=== PATIENT | male | born 1955 | race Two or more races ===

== ENCOUNTER 2018-01-13 15:27 | Emergency (ER) | payer BC ==
[~2018-01-13] VITALS: Ht 172.7 cm; Wt 74.8 kg
--- NOTE | 2018-01-13 15:48 | NUR ---
PT REC'D TO ER VIA EMS C/O SEIZURES FROM SNF HEAD INJURY LEFT HAND 18G IVP HEPLOCKED LABS DRAWN SENT TO LAB
[2018-01-13 15:58] LABS: CALCIUM, SERUM 8.6 mg/dL (8.5-10.1); POTASSIUM 4.4 mmol/L (3.5-5.1)
[2018-01-13] MEDS ORDERED: IV NS 0.9% 1,000 ML BAG IV ONE (16:30)
--- NOTE | 2018-01-13 16:55 | NUR ---
PT GIVEN IV NS BOLUS PER NO [id number] AT THIS TIME
--- NOTE | 2018-01-13 17:01 | NUR ---
CALLED RAHUL FOR TRANSPORT BACK TO [facility], [address], TRIP [phone]
--- NOTE | 2018-01-13 19:11 | NUR ---
REPORT RECEIVED FROM ORVILLE MARIE FOR ALANIS.
--- NOTE | 2018-01-13 19:49 | NUR ---
REPORT GIVEN TO RAHUL FOR ALANIS OF PT FOR TRANSPORT TO SNF.
--- NOTE | 2018-01-13 19:58 | NUR ---
IV removed. Catheter intact and site benign. Pressure and 4x4 applied to site. No bleeding noted. Patient discharged to home in stable condition. Written and verbal after care instructions given. Family verbalizes understanding of instruction.
[2018-01-13 19:59] VITALS: BP 140/93
== END 2018-01-13 20:00 | disposition home or self-care (01) ==
LOC: ER 15:33
DX: R56.9 Unspecified convulsions (principal)
CPT/HCPCS: 36415; 80048-TC; 80164-TC; A4606; J7030; Z7610

== ENCOUNTER 2022-07-08 15:20 | Inpatient (IN) | payer BC ==
[~2022-07-08] VITALS: Ht 170.2 cm; Wt 81.6 kg
--- NOTE | 2022-07-08 15:20 | NUR ---
RECIVED PT 66 YRS MALE TRANSFER FROM SNF BY ANGELA FOR ELEVTED TEMP TEMP CHECHED 102.6 RECTALE
[2022-07-08] MEDS ORDERED: VANCOMYCIN 1 GM in IV D5W 250 ML IV ONE (15:30)
[2022-07-08] MEDS ORDERED: ACETAMINOPHEN 650 MG/SUPP.RECT RC ONE ×2 (15:30→15:48)
[2022-07-08] MEDS ORDERED: PIPERACILLIN /TAZOBACTAM 3.375 G in IV D5W 50 ML IV ONE (15:30)
[2022-07-08] MEDS ORDERED: IV NS 0.9% 1,000 ML BAG IV ONE (15:30)
--- NOTE | 2022-07-08 15:45 | NUR ---
BLOOD AND BLOOD CULTURE BLOOD DROW BY LAB TACH AT bed side
--- NOTE | 2022-07-08 16:05 | NUR ---
MOVE SHEET SUBMITTED.
--- NOTE | 2022-07-08 16:20 | NUR ---
TIFFANY AND CHARI ALDRIDGE SENT TO LAB
[2022-07-08 16:26] LABS: BASOPHILS % (AUTO) 0.3 % (0.0-2.0); HEMATOCRIT 27 % (39-51); HEMOGLOBIN 8.5 g/dL (13.5-17.5); LYMPHOCYTES # (AUTO) 1.3 K/uL (0.8-4.8); MEAN CORPUSCULAR HGB CONC 31 g/dl (31.0-36.0); MEAN CORPUSCULAR VOLUME 98 fL (80-96); MONOCYTES # (AUTO) 1.1 K/uL (0.1-1.30); MONOCYTES % (AUTO) 8.8 % (2.0-12.0); NEUTROPHILS # (AUTO) 10.1 K/uL (1.8-8.9); NEUTROPHILS % (AUTO) 79.9 % (43.0-81.0); PLATELET COUNT (AUTO) 165 K/uL (150-450); RED BLOOD CELL COUNT(AUTO) 2.76 MIL/uL (4.5-6.0); WHITE BLOOD COUNT (AUTO) 12.6 K/uL (4.3-11.0)
[2022-07-08 16:38] LABS: CALCIUM, SERUM 7.9 mg/dL (8.5-10.1); CARBON DIOXIDE 27 mmol/L (21-32); CHLORIDE 111 mmol/L (98-107); CREATININE 1.9 mg/dL (0.6-1.3); GLUCOSE 100 mg/dL (74-106); POTASSIUM 3.6 mmol/L (3.5-5.1); SODIUM SERUM 147 mmol/L (136-145); UREA NITROGEN, BLOOD 41 mg/dL (7-18)
[2022-07-08 16:54] LABS: ALANINE AMINOTRANSFERASE 24 U/L (12-78); ALBUMIN 2.1 g/dL (3.4-5.0); ALKALINE PHOSPHATASE 108 U/L (46-116); ASPARTATE AMINOTRANSFERASE 22 U/L (15-37); BILIRUBIN,DIRECT 0.2 mg/dL (0.0-0.2); BILIRUBIN,TOTAL 0.4 mg/dL (0.2-1.0); TOTAL PROTEIN, SERUM 6.3 g/dL (6.4-8.2)
--- NOTE | 2022-07-08 17:00 | NUR ---
I&O CATHETER FR # 14 INSERTED 200 ML YELLOW CLEAR COLOR UA SENT TO LAB
--- NOTE | 2022-07-08 17:35 | NUR ---
IV OUT RENSERED ANGO CATHETER # 20 ON RT HAND PATATET
--- NOTE | 2022-07-08 17:53 | NUR ---
[facility] CALLED DANCE INSTRUCTOR PAGED.
[2022-07-08 18:27] LABS: BILIRUBIN,URINE NEGATIVE (NEGATIVE); COLOR,URINE YELLOW (YELLOW); LEUKOCYTE ESTERASE ,URINE NEGATIVE (NEGATIVE); NITRITE, URINE NEGATIVE (NEGATIVE); PH,URINE 5.5 (5.0-8.0); PROTEIN,URINE NEGATIVE (NEGATIVE); UGLUCOSE NEGATIVE (NEGATIVE); UROBILINOGEN,URINE 0.2 EU/dL (0.2)
[2022-07-08 18:28] LABS: ABG BASE EXCESS 0.6 mmol/L; ABG PH 7.365 (7.350-7.450); ABG PO2 179.9 mmHg (75.0-100.0); COHb 0.1 % (0.5-1.5); O2Hb 97.6 % (94.0-97.0); SITE, ABG Right Radial; VENT MODE, BG 15L NRB
--- NOTE | 2022-07-08 18:30 | NUR ---
SUCTION PT ORALY THICK YELLOW DELGADO COLOR DEJUANE RUDDYT
[2022-07-08 18:36] LABS: BACTERIA,URINE None seen /HPF (None Seen); RBC,URINE 0-2 /HPF (0-2); SQUAMOUS EPITHELIAL CELL,UR 0-2 /HPF (None Seen); WBC,URINE 0-2 /HPF (0-3)
[2022-07-08 18:49] LABS: BAND % (MANUAL) 16 % (0.0-5.0); EOSINOPHILS % (MANUAL) 1 % (0-4); LYMPHOCYTES % (MANUAL) 12 % (16-48); METAMYELOCYTES % 5 % (0-0); MONOCYTES % (MANUAL) 7 % (0-11.0); NEUTROPHILS % (MANUAL) 59 (42-76)
--- NOTE | 2022-07-08 19:40 | NUR ---
HAND OFF MALICK ZHAO
--- NOTE | 2022-07-08 19:54 | NUR ---
LACTIC ACID 2.5
[2022-07-08] MEDS ORDERED: LORAZEPAM INJ 2 MG/ML VIAL ONE (20:09)
--- NOTE | 2022-07-08 20:26 | NUR ---
room [id number]
[2022-07-08] MEDS ORDERED: LORAZEPAM INJ 2 MG/ML VIAL IV ONE (20:30)
--- NOTE | 2022-07-08 20:44 | NUR ---
covid pcr swab collected and sent to lab
[2022-07-09] VITALS (82 sets, daily range): BP systolic 44–181; BP diastolic 23–88
[2022-07-09] MEDS ORDERED: EPINEPHRINE (1:10,000) SYRINGE 1 MG/10 ML DISP.SYRIN ONE (00:15)
[2022-07-09 00:19] LABS: ABG BASE EXCESS -2.9 mmol/L; ABG PCO2 31.3 mmHg (35.0-45.0); ABG PH 7.436 (7.350-7.450); ABG PO2 52.7 mmHg (75.0-100.0); COHb 0.1 % (0.5-1.5); MetHb 1.4 % (0.0-1.5); O2Hb 86.1 % (94.0-97.0); SITE, ABG Right Radial; VENT MODE, BG 15L NRB
--- NOTE | 2022-07-09 00:43 | NUR ---
20MG ETOMIDATE AND 100MG SUCCICHOLINE GIVEN IVP FOR INTUBATION
--- NOTE | 2022-07-09 00:49 | NUR ---
PT INTUBATED WITH SIZE 7.5 ET TUBE 22 AT THE LIP
[2022-07-09] MEDS ORDERED: PROPOFOL 100 ML ONE (00:51)
--- NOTE | 2022-07-09 00:54 | NUR ---
PROPOFOL INITIATED 5MCG/KG/MIN FOR SEDATION S/P INTUBATION
--- NOTE | 2022-07-09 01:00 | NUR ---
16FR FC INSERTED AND 16FR NGT INSERTED AT R NARE AT 67.PLACEMENT CHECKED VIA ASPIRATION AND AUSCULTATION.
--- NOTE | 2022-07-09 01:07 | NUR ---
RT pt intubated for airway protection and change in ams. intubated with ETT size 7.5 at 22@ teeth. vent settings: AC 18 500 100% +5. vent plugged in to red outlet. alarms on and audible. tube confirmed with co2 capnography and bilateral chest rise plus lung sounds. alarms on and audible. large thick secretions suctioned via ett. ambu bag at bedside.
--- NOTE | 2022-07-09 01:14 | NUR ---
PROPOFOL INFUSION PAUSED DUE TO PT HYPOTENSION
[2022-07-09] MEDS ORDERED: PHENYLEPHRINE 10 MG/ML VIAL ONE ×2 (01:22→04:16)
[2022-07-09] MEDS: PHENYLEPHRINE 50 MG in IV NS 0.9% 245 ML IV PRN ×4 (01:39→12:42)
--- NOTE | 2022-07-09 01:39 | NUR ---
NEOSYNEPHRINE DRIP INITIATED AT 0.5MCG/KG/MIN PER DR LORA FOR SUSTAINED HYPOTENSION.
--- NOTE | 2022-07-09 01:55 | NUR ---
NEOSYNEPHRINE DRIP TITRATED TO 0.6MCG/KG/MIN FOR SUSTAINED HYPOTENSION.
--- NOTE | 2022-07-09 01:57 | NUR ---
XRAY AT BEDSIDE
--- NOTE | 2022-07-09 02:10 | NUR ---
NEOSYNEPHRINE DRIP TITRATED TO 0.7MCG/KG/MIN FOR SUSTAINED HYPOTENSION.
--- NOTE | 2022-07-09 02:25 | NUR ---
NEOSYNEPHRINE DRIP TITRATED TO 0.8MCG/KG/MIN FOR SUSTAINED HYPOTENSION.
--- NOTE | 2022-07-09 02:40 | NUR ---
NEOSYNEPHRINE DRIP TITRATED TO 0.9MCG/KG/MIN FOR SUSTAINED HYPOTENSION.
--- NOTE | 2022-07-09 02:55 | NUR ---
NEOSYNEPHRINE DRIP TITRATED TO 1MCG/KG/MIN FOR SUSTAINED HYPOTENSION.
--- NOTE | 2022-07-09 03:10 | NUR ---
NEOSYNEPHRINE DRIP TITRATED TO 1.5MCG/KG/MIN FOR SUSTAINED HYPOTENSION.
--- NOTE | 2022-07-09 03:25 | NUR ---
NEOSYNEPHRINE DRIP TITRATED TO 2MCG/KG/MIN FOR SUSTAINED HYPOTENSION.
--- NOTE | 2022-07-09 03:45 | NUR ---
NEOSYNEPHRINE DRIP TITRATED TO 2.5MCG/KG/MIN FOR SUSTAINED HYPOTENSION.
--- NOTE | 2022-07-09 03:55 | NUR ---
NEOSYNEPHRINE DRIP TITRATED TO 3MCG/KG/MIN FOR SUSTAINED HYPOTENSION.
[2022-07-09] MEDS ORDERED: AMAN100T GT (04:17)
[2022-07-09] MEDS ORDERED: ATOR10TA GT (04:18)
[2022-07-09] MEDS ORDERED: CLON0.1T GT (04:19)
[2022-07-09] MEDS ORDERED: FOLI0.8T2 GT (04:20)
--- NOTE | 2022-07-09 04:36 | NUR ---
REPORT GIVEN TO ED
--- NOTE | 2022-07-09 04:50 | NUR ---
PT TRANSPORTED TO ROOM 245 ON CARDIAC PER ACLS. RT AT BEDSIDE WITH VENT.
[2022-07-09] MEDS ORDERED: SINEMET GT (05:04)
[2022-07-09] MEDS ORDERED: OLOP5DRO22 EACHEYE (05:04)
[2022-07-09] MEDS ORDERED: METO25TA6 GT (05:04)
[2022-07-09] MEDS ORDERED: IPRA3AMP23 IH (05:04)
[2022-07-09] MEDS ORDERED: PRAM0.253 GT (05:04)
[2022-07-09] MEDS ORDERED: AMIN30LI27 GT (05:04)
[2022-07-09] MEDS ORDERED: CLON1TAB GT (05:04)
[2022-07-09] MEDS ORDERED: LEVE1000 GT (05:04)
[2022-07-09] MEDS ORDERED: GABA-532 GT (05:04)
[2022-07-09] MEDS ORDERED: OMEP20TA5 GT (05:04)
[2022-07-09] MEDS ORDERED: ASCO500P18 GT (05:04)
[2022-07-09] MEDS ORDERED: VALP250S3 GT (05:04)
[2022-07-09] MEDS ORDERED: MULT-213 GT (05:04)
[2022-07-09] MEDS ORDERED: NOREPINEPHRINE 8MG/250ML RTU 250 ML IV ONE (06:09)
[2022-07-09] MEDS: NOREPINEPHRINE 8 MG in IV NS 0.9% 242 ML IV PRN ×4 (06:23→15:45)
[2022-07-09] MEDS ORDERED: ACETAMINOPHEN 650 MG/SUPP.RECT RC PRN (07:00)
[2022-07-09] MEDS ORDERED: IV NS 0.9% 500 ML IV ONE (07:00)
--- NOTE | 2022-07-09 08:00 | NUR ---
RN NOTES RECEIVED PATIENT TRACHEA VENT, NO SEDATION AT THOIS TIME, PATIENT HR BEDSIDE MONITOR 131 ST, INFUSING NESYNEPHRINE 3 MCG.KG/MIN, VEOPHED 0.2 MCG/KG/MIN, LOZA INTACT, RECHECKED GT INTACT, DISTENDED ABDOMEN, PICTURE TAKEN ON RIGHT 2-NF
--- NOTE | 2022-07-09 08:00 | NUR ---
RN NOTES RECEIVED PATIENT TRACHEA /VENT , NO SEDATION AT THIS TIME, PATIENT HR BEDSIDE MONITOR [address] ST, INFUSING NORSYNEPHRINE 3 MCG/KG/MIN, LEVOPHED 0.2 MCG/KG/MIN ON RIGHT INTACT. PATIENT CONTRACTED, LOZA INTACT, RECHECKED GT INTACT. RT WITH THE PATIENT AT THIS TIME. PATIENT HAS DISTENDED ABDOMEN, PICTURE TAKEN ON RIGHT 2-ND FALANGE, AND RIGHT KNEE, KEEP HOB ELEVATED. WILL FOLLOW UP.
[2022-07-09] MEDS: CEFEPIME 2 GM in IV D5W 100 ML IV SCH ×2 (08:16→20:33)
[2022-07-09] MEDS ORDERED: NA P133E RC (08:23)
[2022-07-09] MEDS ORDERED: BISA10SU11 RC (08:23)
[2022-07-09] MEDS ORDERED: FOLI0.4T6 GT (08:23)
[2022-07-09] MEDS ORDERED: MAGN400O6 PO (08:23)
[2022-07-09] MEDS ORDERED: POLY15DR40 EACHEYE (08:23)
[2022-07-09] MEDS ORDERED: ACET-868 GT (08:23)
[2022-07-09] MEDS ORDERED: CARB1TAB21 GT (08:23)
[2022-07-09] MEDS ORDERED: LACT-96 GT (08:23)
[2022-07-09 10:10] LABS: CALCIUM, SERUM 7.8 mg/dL (8.5-10.1); CREATININE 3.3 mg/dL (0.6-1.3); POTASSIUM 3.5 mmol/L (3.5-5.1)
[2022-07-09 10:19] LABS: EOSINOPHILS % (AUTO) 3.3 % (0.0-6.0); HEMATOCRIT 26 % (39-51); HEMOGLOBIN 8.1 g/dL (13.5-17.5); LYMPHOCYTES # (AUTO) 0.9 K/uL (0.8-4.8); LYMPHOCYTES % (AUTO) 3.2 % (20.0-44.0); MEAN CORPUSCULAR HGB CONC 31 g/dl (31.0-36.0); MEAN CORPUSCULAR VOLUME 98 fL (80-96); MONOCYTES # (AUTO) 0.8 K/uL (0.1-1.30); MONOCYTES % (AUTO) 2.9 % (2.0-12.0); NEUTROPHILS # (AUTO) 25.3 K/uL (1.8-8.9); NEUTROPHILS % (AUTO) 90.6 % (43.0-81.0); PLATELET COUNT (AUTO) 161 K/uL (150-450); RED BLOOD CELL COUNT(AUTO) 2.63 MIL/uL (4.5-6.0)
--- NOTE | 2022-07-09 10:45 | NUR ---
RN NOTES PATIENT GET PILL LINE INSERTED ON PANCHO INTACT. NOTIFIED HOSPITALIST PATIENT SEIZING ON RIGHT UPPER ARM, AND SHOULDER FOR ORDERS.
[2022-07-09] MEDS ORDERED: DEXTROSE 50%-WATER 50 ML DISP.SYRIN ONE (10:46)
[2022-07-09] MEDS ORDERED: DEXTROSE 50%-WATER 50 ML DISP.SYRIN IVP ONE (11:00)
[2022-07-09] MEDS ORDERED: IV D5W 250 ML IV ONE (11:00)
[2022-07-09] MEDS ORDERED: LORAZEPAM INJ 2 MG/ML VIAL IV ONE ×2 (11:00→14:30)
--- NOTE | 2022-07-09 11:00 | NUR ---
rn notes notes patient patient seizing get order ativan 4mg/ml iv push per hospitalist, alsi bs-22 mg/dl administered dextrose 250ml blouse.
[2022-07-09] MEDS ORDERED: IV D5 LR 500 ML IV ONE (11:30)
[2022-07-09] MEDS ORDERED: FENTANYL CITRAT IV 2,500 MCG in IV NS 0.9% 200 ML IV PRN (11:30)
[2022-07-09] MEDS ORDERED: IV LR 500 ML IV ONE (11:30)
--- NOTE | 2022-07-09 11:30 | NUR ---
RT NOTE PATIENT DESATURATING. INCREASED FIO2 TO 100%. MONITORING THE PATIENT CLOSELY. RN NOTIFIED AND AWARE.
[2022-07-09] MEDS ORDERED: LEVETIRACETAM (500MG) 1,000 MG in IV NS 0.9% 100 ML IV ONE (12:00)
[2022-07-09] MEDS: PROPOFOL 100 ML IV PRN (12:28)
[2022-07-09] MEDS ORDERED: IV LR 1000 ML 1,000 ML IV ONE (12:30)
[2022-07-09] MEDS: HYDROCORTISONE SOD SUCCINATE 100 MG/2 ML VIAL IV SCH ×2 (12:38→21:30)
[2022-07-09] MEDS ORDERED: GLUCAGON,HUMAN RECOMBINANT 1 MG/VIAL VIAL IM STA (13:05)
[2022-07-09] MEDS: FENTANYL CITRAT IV 2,500 MCG in IV NS 0.9% 200 ML IV PRN (13:11)
[2022-07-09] MEDS: VASOPRESSIN INJ 40 UNIT in IV NS 0.9% 38 ML IV PRN ×2 (13:17→22:08)
[2022-07-09 14:24] LABS: ABG BASE EXCESS -3.1 mmol/L; ABG OXYGEN SATURATION 96.4 % (92.0-98.5); ABG PCO2 32.4 mmHg (35.0-45.0); ABG PH 7.427 (7.350-7.450); ABG PO2 86.7 mmHg (75.0-100.0); AaDO2 593.9 mmHg; COHb 0.3 % (0.5-1.5); MetHb 1.5 % (0.0-1.5); O2Hb 94.7 % (94.0-97.0); PEEP,BG 0 cm H2O; SITE, ABG A-Line; VT, ABG 500 mL
[2022-07-09] MEDS ORDERED: Sodium Bicarbonate 150 MEQ in IV D5/ 0.9% NACL 1,000 ML IV PRN (14:30)
--- NOTE | 2022-07-09 14:30 | NUR ---
rn notes patient sizing get order Dr Escamilla stat Ativan 4 mg/ml iv push, order taken and carried out.
--- NOTE | 2022-07-09 14:33 | NUR ---
rn notes administered Ativan 4 mg /ml iv push, increased fentanyl 50mcg/kg/hr, for stop seizing.
[2022-07-09] MEDS ORDERED: Sodium Bicarbonate 150 MEQ in IV D5W 1,000 ML IV PRN (15:00)
[2022-07-09] MEDS: NOREPINEPHRINE 32 MG in IV NS 0.9% 218 ML IV PRN ×2 (15:40→19:21)
[2022-07-09] MEDS ORDERED: SODIUM BICARBONATE SYR 50 MEQ/50 ML DISP.SYRIN IV ONE (16:34)
[2022-07-09] MEDS ORDERED: EPINEPHRINE (1:10,000) SYRINGE 1 MG/10 ML DISP.SYRIN IVP ONE (16:35)
[2022-07-09] MEDS: PHENYLEPHRINE 100 MG in IV NS 0.9% 240 ML IV PRN ×2 (16:35→22:07)
[2022-07-09] MEDS ORDERED: SUCCINYLCHOLINE CHLORIDE 20 MG/ML VIAL IV ONE (16:36)
[2022-07-09] MEDS ORDERED: ETOMIDATE 2 MG/ML VIAL IV ONE (16:36)
[2022-07-09] MEDS ORDERED: GLUCAGON,HUMAN RECOMBINANT 1 MG/VIAL VIAL IV ONE (17:00)
--- NOTE | 2022-07-09 18:30 | NUR ---
RN NOTES PM CARE DONE, SUCTION, INFUSING NORSYNEPHRINE 3MCG/KG/MIN, LEVOPHED 0.3 MCG/KG/MIN, FENTANYL 50MCG/KG/MIN, VASOPRESSIN 0.03 MCG/KG/MIN, DIPRIVAN 10MCG/KG/MIN, AND [id number] NABACARB @60ML/HR ON RIGHT PICC LINE, A LINE INTACT. ASSIST TURN AND REPOSTION, PATIENT UNSTABLE , FULL CODE. URINE OUTPUT WAS 500ML. ENDORSED ONCOMING NURSE ALANIS.
[2022-07-09] MEDS: LORAZEPAM INJ 2 MG/ML VIAL IV PRN (21:02)
--- NOTE | 2022-07-09 21:23 | NUR ---
RN NOTE PT O2 SAT AT77%-80% WITH FIO2 OF 100%. RT WAS AT BEDSIDE. TACHYPNEIC, SINUS TACH WITH HR IN 130S. ATIVAN GIVEN. NOTIFIED MANAGER COLLEGE DR LORA. NO NEW ORDER MADE. WILL CONTINUE TO MONITOR.
[2022-07-09 22:36] LABS: ABG OXYGEN SATURATION 85.1 % (92.0-98.5); ABG PCO2 40.2 mmHg (35.0-45.0); ABG PH 7.375 (7.350-7.450); ABG PO2 50.2 mmHg (75.0-100.0); AaDO2 622.6 mmHg; COHb 0.3 % (0.5-1.5); MetHb 1.3 % (0.0-1.5); O2Hb 83.7 % (94.0-97.0); PEEP,BG 0 cm H2O; SITE, ABG A-Line; VENT MODE, BG AC 18 500 100% +0
--- NOTE | 2022-07-09 23:00 | NUR ---
RN NOTE PT STILL WITH LOW O2 SAT LOW 80S. RESPIRATIONS IN 30S. ABG DONE BY RT. RESULTS RELAYED TO DR LORA. RT RECOMMENDING FOR PEEP. MD AGREED. PEEP 5 FIO2 100%. O2 SAT NOW AT 94% WILL CONTINUE TO MONITOR.
[2022-07-10] VITALS (67 sets, daily range): BP systolic 65–144; BP diastolic 36–88
[2022-07-10] MEDS ORDERED: LEVETIRACETAM (500MG) 500 MG in IV NS 0.9% 100 ML IV SCH ×2
[2022-07-10] MEDS: ACETAMINOPHEN 650 MG/20.3 ML UDC PEG PRN (00:30)
[2022-07-10] MEDS: PROPOFOL 100 ML IV PRN ×6 (00:52→23:32)
[2022-07-10 04:08] LABS: EOSINOPHILS % (AUTO) 0.1 % (0.0-6.0); HEMATOCRIT 25 % (39-51); HEMOGLOBIN 7.9 g/dL (13.5-17.5); LYMPHOCYTES # (AUTO) 0.9 K/uL (0.8-4.8); LYMPHOCYTES % (AUTO) 2.7 % (20.0-44.0); MEAN CORPUSCULAR HGB CONC 32 g/dl (31.0-36.0); MEAN CORPUSCULAR VOLUME 97 fL (80-96); MONOCYTES % (AUTO) 2.9 % (2.0-12.0); NEUTROPHILS # (AUTO) 33.7 K/uL (1.8-8.9); NEUTROPHILS % (AUTO) 94.3 % (43.0-81.0); PLATELET COUNT (AUTO) 146 K/uL (150-450); RED BLOOD CELL COUNT(AUTO) 2.55 MIL/uL (4.5-6.0)
[2022-07-10 04:15] LABS: WHITE BLOOD COUNT (AUTO) 35.7 K/uL (4.3-11.0)
[2022-07-10 04:24] LABS: CALCIUM, SERUM 7.3 mg/dL (8.5-10.1); CARBON DIOXIDE 27 mmol/L (21-32); CHLORIDE 111 mmol/L (98-107); GLUCOSE 138 mg/dL (74-106); POTASSIUM 4.5 mmol/L (3.5-5.1); SODIUM SERUM 149 mmol/L (136-145); UREA NITROGEN, BLOOD 47 mg/dL (7-18)
[2022-07-10 04:27] LABS: MAGNESIUM 2.2 mg/dL (1.8-2.4); PHOSPHORUS 4.7 mg/dL (2.5-4.9)
[2022-07-10 05:01] LABS: BAND % (MANUAL) 19 % (0.0-5.0); BASOPHILS % (MANUAL) 0 % (0.0-2.0); EOSINOPHILS % (MANUAL) 0 % (0-4); LYMPHOCYTES % (MANUAL) 5 % (16-48); MONOCYTES % (MANUAL) 2 % (0-11.0); NEUTROPHILS % (MANUAL) 74 (42-76)
[2022-07-10] MEDS: PHENYLEPHRINE 100 MG in IV NS 0.9% 240 ML IV PRN ×3 (05:08→20:32)
[2022-07-10] MEDS: HYDROCORTISONE SOD SUCCINATE 100 MG/2 ML VIAL IV SCH ×3 (05:20→21:07)
[2022-07-10 07:02] LABS: BILIRUBIN,DIRECT 0.2 mg/dL (0.0-0.2); BILIRUBIN,TOTAL 0.4 mg/dL (0.2-1.0)
--- NOTE | 2022-07-10 07:07 | NUR ---
RN NOTE PT REMAIN INTUBATED, CONTINUE WITH VENT SETTINGS. O2 SAT AT 90% RT AWARE. NOT IN ANY DISTRESS. REMAIN SEDATED WITH FENTANYL AND PROPOFOL. CONTINUE WITH PRESSORS AND NA BICARB AT 60ML.HR. PICC LINE AND BRIAN PATENT AND INTACT. TMAX AT 100.9, TYLENOL WAS GIVEN. LATEST TEMP 99.4. SINUS TACH ON TELE MONITOR WITH HR 120. LOZA CATH IN PLACE, ADEQUATE AMOUNT OF URINE OUTPUT. ENDORSED TO RINA FOR ALANIS
[2022-07-10] MEDS: CEFEPIME 2 GM in IV D5W 100 ML IV SCH ×2 (07:38→20:35)
[2022-07-10] MEDS ORDERED: Sodium Bicarbonate 150 MEQ in IV D5W 1,000 ML IV SCH (08:00)
--- NOTE | 2022-07-10 08:00 | NUR ---
rn notes PATIENT INTUBATED, TOLERATING SETTING WELL TV-500, FIO2- 100, PEEP-5, HR-121 SINUS TACHY, NO SEIZURE NOTED AT THIS TIME, T- 98.3F, NOT IN ANY DISTRESS. REMAIN SEDATED WITH FENTANYL 75 MCG/KG/MIN AND PROPOFOL 45MCG/KG/MIN. CONTINUE WITH PRESSORS AND NA BICARB AT 60ML/HR. PICC LINE AND BRIAN PATENT AND INTACT. LOZA CATH IN PLACE, ADEQUATE AMOUNT OF URINE OUTPUT. NO SEDATION VACATION TODAY PER DR GRANT ORDER, ASSIST TURN AND REPOSTION Q 2 HR, GT INTACT, RT WITH THE PATIENT FOR BREATHING TREATMENT WAITING PCR RESULT. WILL FOLLOW UP.
--- NOTE | 2022-07-10 09:16 | NUR ---
RN NOTES GET NEW ORDER STAT ABG, VIA DR GALVAN , RT NOTIFIED,.
[2022-07-10 09:34] LABS: ABG BASE EXCESS -1.1 mmol/L; ABG OXYGEN SATURATION 71.5 % (92.0-98.5); ABG PCO2 40.8 mmHg (35.0-45.0); ABG PH 7.385 (7.350-7.450); ABG PO2 38.4 mmHg (75.0-100.0); AaDO2 633.8 mmHg; COHb 0.3 % (0.5-1.5); MetHb 0.4 % (0.0-1.5); PEEP,BG 0 cm H2O; SITE, ABG Right Radial; VENT MODE, BG AC 100%; VT, ABG 500 mL
--- NOTE | 2022-07-10 09:45 | NUR ---
RN NOTES PATIENT FIO2-85% AT THIS TIME, ADDED PEEP 4 VIA RT, ABG RESULT NOTIFIED Dr GALVAN WAITING FOR RESPOND.
--- NOTE | 2022-07-10 09:56 | NUR ---
vent changes below per dr. desir: peep +[address] desir Addendum: 07/10/22 at 0956 by LONA GHOSH RT Amended: Links added.
[2022-07-10] MEDS ORDERED: PRAMIPEXOLE DI-HCL 0.25 MG TABLET GT SCH (10:00)
[2022-07-10] MEDS: AMANTADINE HCL 100 MG CAPSULE GT SCH ×3 (10:10→16:44)
[2022-07-10] MEDS: CARBIDOPA/LEVODOPA 25/100 MG 1 UDTAB GT SCH ×3 (10:10→16:44)
[2022-07-10] MEDS: LEVETIRACETAM SOL (5 ML) 100 MG/ML UDC GT SCH ×2 (10:10→21:07)
--- NOTE | 2022-07-10 10:22 | NUR ---
RN NOTES ADMINISTERED ORAL MEDICATION IA GT, INTACT, NO RESIDUAL.
[2022-07-10] MEDS: VALPROIC ACID 250 MG/5 ML UDC GT SCH ×2 (10:26→21:07)
[2022-07-10] MEDS ORDERED: VALPROATE 1,000 MG in IV D5W 100 ML IV ONE (11:00)
[2022-07-10] MEDS: GABAPENTIN 300 MG CAPSULE GT SCH ×3 (12:14→21:07)
[2022-07-10 13:00] LABS: ABG BASE EXCESS -4.2 mmol/L; ABG OXYGEN SATURATION 61.3 % (92.0-98.5); ABG PCO2 52.5 mmHg (35.0-45.0); ABG PO2 37.7 mmHg (75.0-100.0); AaDO2 622.8 mmHg; COHb 0.3 % (0.5-1.5); MetHb 0.1 % (0.0-1.5); O2Hb 61.1 % (94.0-97.0); PEEP,BG 5 cm H2O; SITE, ABG A-Line; VT, ABG 500 mL
--- NOTE | 2022-07-10 13:00 | NUR ---
rn notes patient rr-39, abg done via RT. PCO 2-52.5, PH-7.260, PO2-37.7,HCO 3-23, result notified Dr Aguiar, and get new order increase tv-550, peep-8, and repeat abg within two hr, order taken and carried out, rt next to the bed. will follow up.
[2022-07-10] MEDS: FENTANYL CITRAT IV 2,500 MCG in IV NS 0.9% 200 ML IV PRN (14:43)
[2022-07-10] MEDS ORDERED: VANCOMYCIN 1 GM in IV D5W 250 ML IV SCH (16:00)
[2022-07-10 16:01] LABS: ABG BASE EXCESS 0.4 mmol/L; ABG OXYGEN SATURATION 90.4 % (92.0-98.5); ABG PCO2 42.7 mmHg (35.0-45.0); ABG PH 7.392 (7.350-7.450); ABG PO2 62.3 mmHg (75.0-100.0); COHb 0.3 % (0.5-1.5); MetHb 0.6 % (0.0-1.5); O2Hb 89.6 % (94.0-97.0); PEEP,BG 8 cm H2O; SITE, ABG A-Line; VT, ABG 550 mL
--- NOTE | 2022-07-10 17:01 | NUR ---
RN NOTES COLLECTED UA SPECIMEN FROM LOZA CATHETER PORT.
[2022-07-10 17:30] LABS: BILIRUBIN,URINE NEGATIVE (NEGATIVE); COLOR,URINE YELLOW (YELLOW); LEUKOCYTE ESTERASE ,URINE TRACE (NEGATIVE); NITRITE, URINE POSITIVE (NEGATIVE); PROTEIN,URINE TRACE mg/dl (NEGATIVE); UGLUCOSE TRACE mg/dL (NEGATIVE); UROBILINOGEN,URINE 0.2 EU/dL (0.2)
[2022-07-10] MEDS: VANCOMYCIN 1 GM in IV D5W 250 ML IV SCH (18:05)
[2022-07-10 18:20] LABS: CREATININE, URINE 35.2 MG/DL (30.0-125.0)
[2022-07-10 18:29] LABS: RBC,URINE 21-50 /HPF (0-2)
[2022-07-10 18:30] LABS: BACTERIA,URINE 1+ /HPF (None Seen); SQUAMOUS EPITHELIAL CELL,UR 0-2 /HPF (None Seen)
--- NOTE | 2022-07-10 18:35 | NUR ---
RN NOTES SUCTION, MOUTH CARE DONE, PATIENT REMAIN INTUBATED, AND CRITICAL, NO TURNING BECAUSE OF PATIENT CONDITION. PATIENT FULL CODE, PATIENT REMAIN SEDATED FENTANYL 75 MCG/KG/MIN, AND DIPRIVAN 45 MCG/KG/MIN. INFUSING NORSYNEPHRINE 3 MCG/KG/MIN, AND VASOPRESSIN 0.03 MCG/KG/MIN ON PANCHO PICC LINE. A LINE INTACT ON RIGHT FEMORAL AREA. LOZA OUTPUT WAS 1050ML. ENDORSED ONCOMING NURSE ALANIS.
[2022-07-10] MEDS: VASOPRESSIN INJ 40 UNIT in IV NS 0.9% 38 ML IV PRN (18:52)
--- NOTE | 2022-07-10 19:05 | NUR ---
RN NOTES PATIENT RECEIVED ON BED SEDATED, ORALLY INTUBATED SIZE 7.5 AND 22 CM BY THE LIPS, ON MECHANICAL VENTILATOR, WITH SETTINGS TIDAL VOLUME- 550, AC- 18, FIO2- 100%, PEEP- 8, RESPIRATORY EVEN AND UNLABORED NO SOB NOTED, AFEBRILE, NO S/S OF DISTRESS NOTED. NOTED WITH PANCHO ML, FLUSHED WITH NS, RUNNING WITH FENRANYL @ 75 MCG/HR, PROPOFOL @ 45 MCG/KG/MIN, VASOPRESSIN @ 0.03 MCG/KG/MIN, NEOSYNEPHRINE @ 3 MCG/KG/MIN. A-LINE INTACT ON RIGHT FEMORAL. ON LOZA CATHETER DRAINING WITH CLEAR YELLOW URINE VIA GRAVITY, ALL SAFETY MEASURE PROVIDED. BED IN LOWEST POSITION, LOCKED. CONTINUE TO MONITOR.
[2022-07-10] MEDS: PRAMIPEXOLE DI-HCL 0.25 MG TABLET GT SCH (21:07)
[2022-07-11] VITALS (96 sets, daily range): BP systolic 86–136; BP diastolic 45–87
[2022-07-11] MEDS: PROPOFOL 100 ML IV PRN ×5 (03:22→21:32)
[2022-07-11] MEDS: PHENYLEPHRINE 100 MG in IV NS 0.9% 240 ML IV PRN ×2 (03:45→12:38)
[2022-07-11 03:58] LABS: BASOPHILS % (AUTO) 0.1 % (0.0-2.0); EOSINOPHILS % (AUTO) 0.1 % (0.0-6.0); HEMATOCRIT 26 % (39-51); HEMOGLOBIN 8.4 g/dL (13.5-17.5); LYMPHOCYTES # (AUTO) 0.9 K/uL (0.8-4.8); LYMPHOCYTES % (AUTO) 3.9 % (20.0-44.0); MEAN CORPUSCULAR HGB CONC 33 g/dl (31.0-36.0); MEAN CORPUSCULAR VOLUME 97 fL (80-96); MONOCYTES # (AUTO) 0.3 K/uL (0.1-1.30); MONOCYTES % (AUTO) 1.2 % (2.0-12.0); NEUTROPHILS # (AUTO) 21.5 K/uL (1.8-8.9); NEUTROPHILS % (AUTO) 94.7 % (43.0-81.0); PLATELET COUNT (AUTO) 124 K/uL (150-450); RED BLOOD CELL COUNT(AUTO) 2.65 MIL/uL (4.5-6.0); WHITE BLOOD COUNT (AUTO) 22.7 K/uL (4.3-11.0)
[2022-07-11 04:09] LABS: CALCIUM, SERUM 7.8 mg/dL (8.5-10.1); CREATININE 1.4 mg/dL (0.6-1.3); MAGNESIUM 2.4 mg/dL (1.8-2.4); PHOSPHORUS 3.2 mg/dL (2.5-4.9); POTASSIUM 3.5 mmol/L (3.5-5.1)
[2022-07-11] MEDS: HYDROCORTISONE SOD SUCCINATE 100 MG/2 ML VIAL IV SCH ×3 (04:42→20:20)
--- NOTE | 2022-07-11 07:13 | NUR ---
RN NOTES NO SIGNIFICANT CHANGES THROUGH OUT THE SHIFT, REMAIN ORALLY INTUBATED, RESPIRATORY EVEN AND UNLABORED NO SOB NOTED, AFEBRILE, NO S/S OF DISTRESS NOTED. NOTED WITH PANCHO ML, FLUSHED WITH NS, RUNNING WITH FENRANYL @ 75 MCG/HR, PROPOFOL @ 45 MCG/KG/MIN, VASOPRESSIN @ 0.03 MCG/KG/MIN, NEOSYNEPHRINE @ 2.5 MCG/KG/MIN. A-LINE INTACT ON RIGHT FEMORAL. ON LOZA CATHETER DRAINING WITH CLEAR YELLOW URINE VIA GRAVITY. ALL DUE MEDS GIVEN. ALL SAFETY MEASURE PROVIDED. BED IN LOWEST POSITION, LOCKED. REPORT GIVEN TO MORNING SHIFT NURSE FOR CONTINUITY OF CARE.
--- NOTE | 2022-07-11 07:30 | NUR ---
OPENING NOTE: REPORT RECEIVED FROM LUDIN JACINTO. LABS AND ORDERS REVIEWED DURING REPORT. PER REPORT NO SIGNIFICANT CHANGES OVERNIGHT. CURRENT GTTS INFUSING, FENTANYL, VASOPRESSIN, ELIZA-SYNEPHRINE AND PROPOFOL, SEE IV SPREADSHEET FOR DOSES INFUSING. PT DOES NOT APPEAR TO BE IN ANY DISTRESS. PT CHECKED ON HOURLY AND PRN BY NURSING STAFF.
[2022-07-11] MEDS: CEFEPIME 2 GM in IV D5W 100 ML IV SCH ×2 (08:14→19:43)
[2022-07-11] MEDS: CARBIDOPA/LEVODOPA 25/100 MG 1 UDTAB GT SCH ×3 (08:31→17:01)
[2022-07-11] MEDS: LEVETIRACETAM SOL (5 ML) 100 MG/ML UDC GT SCH ×2 (08:31→20:20)
[2022-07-11] MEDS: AMANTADINE HCL 100 MG CAPSULE GT SCH ×3 (08:31→17:00)
[2022-07-11] MEDS: VALPROIC ACID 250 MG/5 ML UDC GT SCH ×2 (08:31→20:19)
[2022-07-11] MEDS: GABAPENTIN 300 MG CAPSULE GT SCH ×4 (08:31→20:20)
[2022-07-11 08:35] LABS: ABG BASE EXCESS 1.4 mmol/L; ABG OXYGEN SATURATION 91.8 % (92.0-98.5); ABG PCO2 45.6 mmHg (35.0-45.0); ABG PH 7.386 (7.350-7.450); ABG PO2 70.5 mmHg (75.0-100.0); AaDO2 596.9 mmHg; COHb 0.3 % (0.5-1.5); MetHb 0.3 % (0.0-1.5); O2Hb 91.2 % (94.0-97.0); PEEP,BG 8 cm H2O; SITE, ABG A-Line; VT, ABG 550 mL
--- NOTE | 2022-07-11 09:00 | NUR ---
NO SEDATION VACATION PER DR GALVAN D/T SEIZURES, PEEP 8 AND 100% FIO2
[2022-07-11] MEDS: JEVITY 1.2 CAL 1,000 ML BOTTLE GT PRN (13:07)
[2022-07-11] MEDS: FENTANYL CITRAT IV 2,500 MCG in IV NS 0.9% 200 ML IV PRN (14:33)
[2022-07-11] MEDS: VANCOMYCIN 1 GM in IV D5W 250 ML IV SCH (17:21)
--- NOTE | 2022-07-11 18:08 | NUR ---
END OF SHIFT NOTE: PT HAD AN UNEVENTUL DAY. VASOPRESSIN WEANED OFF. ELIZA-SYNEPHRINE WEANED DOWN TO 1.7 MCG/KG/MIN PER MD ORDERS. PREVIOUSLY NOTED NO SEDATION VACATION PER MD ORDERS. PT REPOSITIONED Q2H PER PROTOCOL. PT CHECKED ON HOURLY AND PRN BY NURSING STAFF.
--- NOTE | 2022-07-11 19:54 | NUR ---
RN NOTE RECEIVED PT ETT SECURED CONNECTED TO VENT WITH SETTING AC18 TV 550 FIO2 100% P8. NOT IN ANY DISTRESS. SEDATED WITH PROPOFOL AT 45MCK/KG/MIN AND FENTANYL AT 76 MCG/HR. SR ON TELE MONITOR WITH HR 86%. GT PATENT AND INPLACE, ON JEVITY RUNNING AT 10ML/HR. NO RESIDUALS NOTED. KEPT HOB ELEVATED. PICC LINE PATENT AND INTACT, ON NEOSYNEPHRINE DRIP. LOZA DRAINING CLEAR YELLOW URINE OUTPUT. WILL CONTINUE TO MONITOR PT.
[2022-07-11] MEDS: MUPIROCIN OINT 2% 22 GM TUBE NS SCH (20:20)
[2022-07-11] MEDS: PRAMIPEXOLE DI-HCL 0.25 MG TABLET GT SCH (21:05)
[2022-07-12] VITALS (89 sets, daily range): BP systolic 71–121; BP diastolic 44–72
[2022-07-12] MEDS: PHENYLEPHRINE 100 MG in IV NS 0.9% 240 ML IV PRN ×2 (00:33→11:39)
[2022-07-12] MEDS: PROPOFOL 100 ML IV PRN ×2 (02:34→06:09)
[2022-07-12 04:28] LABS: BASOPHILS % (AUTO) 0.1 % (0.0-2.0); EOSINOPHILS % (AUTO) 1.3 % (0.0-6.0); HEMATOCRIT 26 % (39-51); HEMOGLOBIN 8.8 g/dL (13.5-17.5); LYMPHOCYTES # (AUTO) 0.7 K/uL (0.8-4.8); LYMPHOCYTES % (AUTO) 5.5 % (20.0-44.0); MEAN CORPUSCULAR HGB CONC 34 g/dl (31.0-36.0); MEAN CORPUSCULAR VOLUME 96 fL (80-96); MONOCYTES # (AUTO) 0.1 K/uL (0.1-1.30); MONOCYTES % (AUTO) 0.5 % (2.0-12.0); NEUTROPHILS # (AUTO) 11.9 K/uL (1.8-8.9); NEUTROPHILS % (AUTO) 92.6 % (43.0-81.0); PLATELET COUNT (AUTO) 88 K/uL (150-450); RED BLOOD CELL COUNT(AUTO) 2.71 MIL/uL (4.5-6.0); WHITE BLOOD COUNT (AUTO) 12.8 K/uL (4.3-11.0)
[2022-07-12 04:37] LABS: CALCIUM, SERUM 7.3 mg/dL (8.5-10.1); CREATININE 1.3 mg/dL (0.6-1.3); MAGNESIUM 2.6 mg/dL (1.8-2.4); PHOSPHORUS 3.2 mg/dL (2.5-4.9); POTASSIUM 3.4 mmol/L (3.5-5.1)
[2022-07-12 05:12] LABS: BAND % (MANUAL) 15 % (0.0-5.0); BASOPHILS % (MANUAL) 0 % (0.0-2.0); EOSINOPHILS % (MANUAL) 0 % (0-4); LYMPHOCYTES % (MANUAL) 7 % (16-48); MONOCYTES % (MANUAL) 4 % (0-11.0); NEUTROPHILS % (MANUAL) 74 (42-76)
[2022-07-12] MEDS: HYDROCORTISONE SOD SUCCINATE 100 MG/2 ML VIAL IV SCH ×3 (05:30→21:21)
--- NOTE | 2022-07-12 07:10 | NUR ---
AUSTR[employer]IAN RULES FOOTBALLER OPENING NOTE: RECEIVED PT. IN BED, SEDATED. RESPONDS ETT - 7.5/; AC - 18; VT - 550; FIO2 - 100%; PEEP - 8. SATURATING AT 92% AT THIS TIME. NO S/S OF RESPIRATORY DISTRESS. CORRESPONDENCE SCHOOL INSTRUCTOR READS NSR AT 64 BPM. PT. ON F/C WITH YELLOW CLEAR URINE DRAINING VIA GRAVITY. PT. HAS SCABS ON R KNEE AND R 2ND TOE, WILL CONTINUE TO MONITOR AND DO SKIN PRECAUTIONS. EDEMA NOTED ON HANDS AND LOWER EXTREMITIES. PT. HAS G-TUBE, SITE C/D/I WITH JEVITY 1.2 RUNNING AT 10 ML/HR. 120 ML GASTRIC RESIDUAL NOTED. IV ACCESS ON PANCHO PICC WITH FENTANYL RUNNING AT 75 MCG/HR, PROPOFOL AT 45 MCG/KG/MIN, AND NEOSYNEPHRINE AT 1.8 MCG/KG/MIN; ALSO HAS R FEMORAL ARTERIAL LINE, ZEROED, CALIBRATED AND PLACED AT THE PHLEBOSTATIC AXIS; BOTH IV SITE DRESSINGS C/D/I WITH NO S/S OF INFILTRATION. SAFETY MEASURES IN PLACE: BED IN LOWEST AND LOCKED POSITION, HOB ELEVATED AT 30 DEGREES, BED ALARM ON, SIDE RAILS UP X2, CALL LIGHT WITHIN EASY REACH. WILL TURN AND REPOSITION IN BED AT LEAST Q2H. WILL CONTINUE TO MONITOR PT. FOR ANY CHANGES.
--- NOTE | 2022-07-12 07:28 | NUR ---
RN NOTE PT REMAIN INTUBATED, CONTINUE WITH VENT SETTINGS. NOT IN ANY DISTRESS. TOLERATES TUBE FEEDING. ADEQUATE MOUNT OF URINE. CONTINUE WITH NEOSYNEPHRINE PROPOFOL AND FENTANYL. ENDORSED TO AM SHIFT NURSE FOR ALANIS.
[2022-07-12] MEDS: CEFEPIME 2 GM in IV D5W 100 ML IV SCH ×2 (08:54→21:24)
[2022-07-12] MEDS: GABAPENTIN 300 MG CAPSULE GT SCH ×4 (08:55→21:21)
[2022-07-12] MEDS: CARBIDOPA/LEVODOPA 25/100 MG 1 UDTAB GT SCH ×3 (08:55→17:16)
[2022-07-12] MEDS: LEVETIRACETAM SOL (5 ML) 100 MG/ML UDC GT SCH ×2 (08:56→21:21)
[2022-07-12] MEDS: AMANTADINE HCL 100 MG CAPSULE GT SCH ×3 (08:56→17:15)
[2022-07-12] MEDS: VALPROIC ACID 250 MG/5 ML UDC GT SCH ×2 (08:57→21:21)
[2022-07-12] MEDS: MUPIROCIN OINT 2% 22 GM TUBE NS SCH ×2 (08:57→21:30)
[2022-07-12] MEDS ORDERED: POTASSIUM CHLORIDE 20 MEQ POWDER PACKET GT SCH (09:00)
--- NOTE | 2022-07-12 10:10 | NUR ---
LASER PRINT OPERATOR NOTE: DIPRIVAN DRIP STOPPED AT 1000 DUE TO TRIGLYCERIDES OF [address] GALVAN'S ORDER. WILL CONTINUE TO MONITOR IF PT.'S RESPIRATORY RATE WILL REMAIN STABLE ON ONLY FENTANYL DRIP. VERSED DRIP ON STANDBY PER DR. GALVAN'S ORDER.
[2022-07-12] MEDS ORDERED: MIDAZOLAM HCL 100 MG in IV NS 0.9% 80 ML IV PRN (10:30)
--- NOTE | 2022-07-12 13:00 | NUR ---
TORPEDO WORKER NOTE: PT. NOTED TO HAVE A GASTRIC RESIDUAL OF 575 ML THAT RESEMBLES WATER AND TUBE FEEDING, NO S/S OF BLEEDING NOTED. RESIDUAL INJECTED BACK VIA G-TUBE. TUBE FEEDING STOPPED AND FREE WATER FLUSHES HELD. DR. QUINTEROS NOTIFIED. HOB ELEVATED AT 45 DEGREES. WILL CONTINUE TO MONITOR PT.'S GASTRIC RESIDUAL AND S/S OF ASPIRATION.
--- NOTE | 2022-07-12 16:00 | NUR ---
BLOOD BANK MANAGER NOTE: GASTRIC RESIDUAL RE-CHECKED AND STILL GOT [address] QUINTEROS NOTIFIED AND ORDERED FOR TUBE FEEDING AND FREE WATER FLUSHES TO BE HELD UNTIL GASTRIC RESIDUAL IS < 100 ML. ONCE GASTRIC RESIDUAL IS < 100 ML, MD ORDERED TO RESTART TUBE FEEDING AT HALF OF THE ORIGINAL RATE AND ADVANCE TO ORIGINAL RATE IF PT. IS TOLERATING TUBE FEEDING WELL. WILL FOLLOW ORDERS AND CONTINUE TO RE-ASSESS PT.'S GASTRIC RESIDUAL.
[2022-07-12] MEDS: VANCOMYCIN 1 GM in IV D5W 250 ML IV SCH (18:33)
--- NOTE | 2022-07-12 19:10 | NUR ---
DISK SANDER CLOSING NOTE: PT. REMAINS IN BED, SEDATED. RESPONDS TO DEEP PAIN STIMULI WITH EYELID AND LIP MOVEMENT. LEFT PUPIL DILATED AND RIGHT PUPIL HAS SLUGGISH REACTION. ETT - 7.5/22; AC - 18; VT - 550; FIO2 - 100%; PEEP - 10. SATURATING AT 96% AT THIS TIME. NO S/S OF RESPIRATORY DISTRESS. CHANNELING MACHINE OPERATOR READS NSR AT 74 BPM. PT. ON F/C WITH TOTAL OUTPUT OF 700 ML CLEAR YELLOW URINE THIS SHIFT. PT. HAS G-TUBE, SITE C/D/I WITH JEVITY 1.2 CURRENTLY ON HOLD DUE TO HIGH AMOUNT OF GASTRIC RESIDUAL. ORDERS WHEN TO RESTART TUBE FEEDING BY DR. QUINTEROS OBTAINED. IV ACCESS ON PANCHO PICC WITH FENTANYL RUNNING AT 50 MCG/HR AND NEOSYNEPHRINE AT 1.5 MCG/KG/MIN; ALSO HAS R FEMORAL ARTERIAL LINE, ZEROED, CALIBRATED AND PLACED AT THE PHLEBOSTATIC AXIS; BOTH IV SITE DRESSINGS C/D/I WITH NO S/S OF INFILTRATION. SAFETY MEASURES MAINTAINED: BED IN LOWEST AND LOCKED POSITION, HOB ELEVATED AT 30 DEGREES, BED ALARM ON, SIDE RAILS UP X2, CALL LIGHT WITHIN EASY REACH. TURNED AND REPOSITIONED IN BED AT LEAST Q2H. ENDORSED CONTINUITY OF CARE TO REGULATOR PIN INSERTER RN BERNIE.
--- NOTE | 2022-07-12 19:46 | NUR ---
manager agriculture. initial assessment. received the pt rest in bed. orally intubated, ett 7.5,lip 22,rate 18,tv 550,fio2 100,peep 10. sat 96. no acute distress noted. saxophone assembler showing nsr. hob elevated. iv rt upper arm picc line. trisha 1.5mcg/kg/min, fentanyl 50mcg, fc patent. gt intact. gt residual 400. hob elevated. will continue to monitor vitals.
--- NOTE | 2022-07-12 19:46 | NUR ---
RCVD PT ORALLY INTUBATED WITH ETT 7.5 SECURED@ 22 CM LIP ON [facility] VENT SETTINGS OF AC 18 , VT 550, FIO2 100%, PEEP10 VENT PLUGGED INTO RED OUTLET VENT ALARMS ON AND AUDIBLE , AMBU BAG @BEDSIDE. NO RESPIRATORY DISTRESS NOTED AT THIS TIME . WILL CONTINUE TO MONITOR T/O SHIFT.
[2022-07-12] MEDS: PRAMIPEXOLE DI-HCL 0.25 MG TABLET GT SCH (21:24)
[2022-07-12] MEDS: JEVITY 1.2 CAL 1,000 ML BOTTLE GT PRN (22:17)
[2022-07-13] VITALS (86 sets, daily range): BP systolic 89–145; BP diastolic 42–80
--- NOTE | 2022-07-13 | NUR ---
BALLISTIC TECHNICIAN. RESIDUAL 60 ML. CLEAR.GT FEEDING RESUMED. WILL MONITOR
[2022-07-13] MEDS: PHENYLEPHRINE 100 MG in IV NS 0.9% 240 ML IV PRN ×2 (00:40→15:38)
[2022-07-13] MEDS: FENTANYL CITRAT IV 2,500 MCG in IV NS 0.9% 200 ML IV PRN (01:11)
[2022-07-13] MEDS: ACETAMINOPHEN 650 MG/20.3 ML UDC PEG PRN (01:14)
--- NOTE | 2022-07-13 03:42 | NUR ---
TITRATE O2 TO 90% , ORVILLE ARNOLD NOTIFIED. SPO2 99%, WILL CONTINUE TO MONITOR T/O SHIFT.
[2022-07-13 04:39] LABS: EOSINOPHILS % (AUTO) 4.5 % (0.0-6.0); HEMATOCRIT 24 % (39-51); HEMOGLOBIN 7.8 g/dL (13.5-17.5); LYMPHOCYTES # (AUTO) 0.8 K/uL (0.8-4.8); LYMPHOCYTES % (AUTO) 4.6 % (20.0-44.0); MEAN CORPUSCULAR HGB CONC 33 g/dl (31.0-36.0); MEAN CORPUSCULAR VOLUME 96 fL (80-96); MONOCYTES # (AUTO) 0.2 K/uL (0.1-1.30); MONOCYTES % (AUTO) 0.9 % (2.0-12.0); PLATELET COUNT (AUTO) 57 K/uL (150-450); RED BLOOD CELL COUNT(AUTO) 2.48 MIL/uL (4.5-6.0); WHITE BLOOD COUNT (AUTO) 17.8 K/uL (4.3-11.0)
[2022-07-13 04:48] LABS: CALCIUM, SERUM 7.9 mg/dL (8.5-10.1); CREATININE 1.5 mg/dL (0.6-1.3); MAGNESIUM 2.8 mg/dL (1.8-2.4); PHOSPHORUS 3.8 mg/dL (2.5-4.9); POTASSIUM 4.2 mmol/L (3.5-5.1)
--- NOTE | 2022-07-13 05:00 | NUR ---
TITRATE FIO2 TO 80% RN CLAYTON NOTIFIED. SPO2 98%, WILL CONTINUE TO MONITOR T/O SHIFT.
[2022-07-13] MEDS: HYDROCORTISONE SOD SUCCINATE 100 MG/2 ML VIAL IV SCH ×3 (05:57→21:41)
--- NOTE | 2022-07-13 06:00 | NUR ---
ULTRASONOGRAPHER. RESIDUAL 300 ML. RESIDUAL LIKE FEEDING. HELD FEEDING NOW. WILL MONITOR
--- NOTE | 2022-07-13 06:07 | NUR ---
COTTONSEED MEAT PRESSER. AM CARE GIVEN. REMAINING SAME VENT SETTINGS TOLERATED WELL. SAT 98%. NO ACUTE DISTRESS NOTED. EMOTIONAL SUPPORT TEACHER SHOWING NSR. IV RT FEMORAL TLC. FENTANYL 50 MCG, ELIZA 1.5 MCG/KG/MIN. FC PATENT. URINE DRAINING. PT IS NOT TOLERATED GT FEED, [id number]. WILL CONTINUE TO MONITOR VITALS.
--- NOTE | 2022-07-13 07:05 | NUR ---
FOLDER HAND OPENING NOTE: RECEIVED PT. IN BED, SEDATED. RESPONDS TO PAINFUL STIMULI WITH EYELID AND LIP MOVEMENT. LEFT PUPIL DILATED AND R PUPIL SLUGGISH REACTION NOTED. ETT - 7.5/22; AC - 18; VT - 550; FIO2 - 80%; PEEP - 10. SATURATING AT 93% AT THIS TIME. NO S/S OF RESPIRATORY DISTRESS. FITNESS SPECIALIST READS NSR AT 74 BPM. PT. ON F/C WITH YELLOW CLEAR URINE DRAINING VIA GRAVITY. PT. HAS SCABS ON R KNEE AND R 2ND TOE, WILL CONTINUE TO MONITOR AND DO SKIN PRECAUTIONS. EDEMA NOTED ON HANDS AND LOWER EXTREMITIES. PT. HAS G-TUBE, CLAMPED, FEEDING HELD FOR NOW FOR HIGH AMOUNT OF GASTRIC RESIDUAL. 90 ML GASTRIC RESIDUAL NOTED. WILL RESTART HALF OF FEEDING RATE ORDERED BY . IV ACCESS ON PANCHO PICC WITH FENTANYL RUNNING AT 50 MCG/HR, AND NEOSYNEPHRINE AT 1 MCG/KG/MIN; ALSO HAS R FEMORAL ARTERIAL LINE, ZEROED, CALIBRATED AND PLACED AT THE PHLEBOSTATIC AXIS; BOTH IV SITE DRESSINGS C/D/I WITH NO S/S OF INFILTRATION. SAFETY MEASURES IN PLACE: BED IN LOWEST AND LOCKED POSITION, HOB ELEVATED AT 30 DEGREES, BED ALARM ON, SIDE RAILS UP X2, CALL LIGHT WITHIN EASY REACH. WILL TURN AND REPOSITION IN BED AT LEAST Q2H. WILL CONTINUE TO MONITOR PT. FOR ANY CHANGES.
[2022-07-13] MEDS: IV D5W 1,000 ML IV SCH ×2 (08:40→21:36)
[2022-07-13] MEDS: MUPIROCIN OINT 2% 22 GM TUBE NS SCH ×2 (08:41→21:37)
[2022-07-13] MEDS: CEFEPIME 2 GM in IV D5W 100 ML IV SCH (08:42)
[2022-07-13] MEDS: LEVETIRACETAM SOL (5 ML) 100 MG/ML UDC GT SCH ×2 (08:43→21:25)
[2022-07-13] MEDS: VALPROIC ACID 250 MG/5 ML UDC GT SCH ×2 (08:44→21:25)
[2022-07-13] MEDS: AMANTADINE HCL 100 MG CAPSULE GT SCH ×3 (08:44→16:29)
[2022-07-13] MEDS: CARBIDOPA/LEVODOPA 25/100 MG 1 UDTAB GT SCH ×3 (08:44→16:28)
[2022-07-13] MEDS: GABAPENTIN 300 MG CAPSULE GT SCH ×4 (08:44→21:25)
--- NOTE | 2022-07-13 09:00 | NUR ---
ULTIMATE HOOPS SCOREBOARD OPERATOR NOTE: NO SEDATION VACATION TODAY PER DR. GALVAN'S ORDER.
[2022-07-13 09:06] LABS: ABG BASE EXCESS 0.3 mmol/L; ABG OXYGEN SATURATION 92.4 % (92.0-98.5); ABG PCO2 41.7 mmHg (35.0-45.0); ABG PH 7.398 (7.350-7.450); AaDO2 421.5 mmHg; COHb 0.3 % (0.5-1.5); MetHb 0.5 % (0.0-1.5); O2Hb 91.7 % (94.0-97.0); PEEP,BG 10 cm H2O; SITE, ABG Right Radial; VT, ABG 550 mL
[2022-07-13] MEDS: METOCLOPRAMIDE HCL 10 MG/2 ML VIAL IV SCH ×3 (09:19→21:41)
[2022-07-13] MEDS: JEVITY 1.2 CAL 1,000 ML BOTTLE GT PRN (09:19)
[2022-07-13 12:27] LABS: BAND % (MANUAL) 17 % (0.0-5.0); BASOPHILS % (MANUAL) 0 % (0.0-2.0); EOSINOPHILS % (MANUAL) 0 % (0-4); LYMPHOCYTES % (MANUAL) 9 % (16-48); MONOCYTES % (MANUAL) 3 % (0-11.0); NEUTROPHILS % (MANUAL) 71 (42-76)
--- NOTE | 2022-07-13 12:28 | NUR ---
PERFORMANCE TEST ARCHITECTPLANNER SCHEDULER OF CARE NOTE: TRANSFERRED CARE OF PT. TO PERFORMANCE TEST ARCHITECT FER. REPORT GIVEN AT BEDSIDE. PT. REMAINS SEDATED. RESPONDS TO PAINFUL STIMULI WITH EYELID AND LIP MOVEMENT. LEFT PUPIL DILATED AND R PUPIL SLUGGISH REACTION NOTED. ETT - 7.5/22; AC - 18; VT - 525; FIO2 - 75%; PEEP - 10. SATURATING AT 97% AT THIS TIME. NO S/S OF RESPIRATORY DISTRESS. ER MANAGER READS NSR AT 82 BPM. PT. ON F/C WITH YELLOW CLEAR URINE DRAINING VIA GRAVITY. G-TUBE FEEDING RESUMED WITH JEVITY 1.2 RUNNING AT 10 ML/HR, 50 ML GASTRIC RESIDUAL NOTED. IV ACCESS ON PANCHO PICC WITH FENTANYL RUNNING AT 75 MCG/HR, AND NEOSYNEPHRINE AT 1 MCG/KG/MIN; ALSO HAS R FEMORAL ARTERIAL LINE, ZEROED, CALIBRATED AND PLACED AT THE PHLEBOSTATIC AXIS; BOTH IV SITE DRESSINGS C/D/I WITH NO S/S OF INFILTRATION. SAFETY MEASURES MAINTAINED: BED IN LOWEST AND LOCKED POSITION, HOB ELEVATED AT 30 DEGREES, BED ALARM ON, SIDE RAILS UP X2, CALL LIGHT WITHIN EASY REACH. TURNED AND REPOSITIONED IN BED AT LEAST Q2H. ENDORSED CONTINUITY OF CARE TO PERFORMANCE TEST ARCHITECT FER.
--- NOTE | 2022-07-13 12:30 | NUR ---
RN NOTES RECEIVED PT ON BED, SEDATED , ON FENTANYL 75 MCG/HR , TOLERATING VENT SETTING WELL. O2 SAT WNL, LOZA DRAINING TO GRAVITY, TF AT 5CC/HR , ELIZA AT 1 MCG/KG/MIN , IVF AT 75CC/HR RUNNING , IV SITE CDI, SR UP X3, CALL LIGHT WITHIN EASY REACH, BED LOCKED AND IN LOWEST POSITION, CONTINUE TO MONITOR.
[2022-07-13] MEDS: MEROPENEM 1 G in IV NS 0.9% 100 ML IV SCH (17:01)
--- NOTE | 2022-07-13 18:00 | NUR ---
RN NOTES PT REMAINS INTUBATED AND SEDATED, ON FENTANYL AT 75 MCH/HR , ELIZA AT .06 MCG/KG/MIN , IVF AT 75CC/HR RUNNING , ON TELE SR , LOZA DRAINING TO GRAVITY, TF INCREASED TO 20CC /HR , NO RESIDUAL NOTED, IV SITE CDI, SR UP X3, CALL LIGHT WITHIN EASY REACH, BED LOCKED AND IN LOWEST POSITION, WILL ENDORSE TO JAWBONE PULLER NURSE FOR CONTINUITY OF CARE .
--- NOTE | 2022-07-13 20:26 | NUR ---
RECEIVED PT INTUBATED 7.5 ETT SECURED AT 22CM AT THE LIP. NO RESP DISTRESS. PT TOLERATING VENT SETTINGS. SX'D SMALL AMT OF THIN SECRETIONS. VENT ALARMS SET AND AUDIBLE. AMBU BAG AT BEDSIDE. CONTINUE TO MONITOR. Addendum: 07/13/22 at 2027 by RALPH CALVIN RT Amended: Links added.
[2022-07-13] MEDS: PRAMIPEXOLE DI-HCL 0.25 MG TABLET GT SCH (21:25)
[2022-07-13] MEDS: DOXYCYCLINE 100 MG in IV D5W 100 ML IV SCH (21:41)
[2022-07-14] VITALS (94 sets, daily range): BP systolic 70–165; BP diastolic 44–90
--- NOTE | 2022-07-14 00:15 | NUR ---
ICU/CORE CLEANER TRIED TO TURN OFF ELIZA FOR STABLE BP THROUGH A-LINE BY BOOKKEEPING CLERK NURSE, WILL MONITOR THIS PT AND HIS BP THROUGH BRIAN.
[2022-07-14] MEDS: FENTANYL CITRAT IV 2,500 MCG in IV NS 0.9% 200 ML IV PRN (01:15)
--- NOTE | 2022-07-14 01:30 | NUR ---
ICU/UTILITY PIPE LAYER 'ELIZA WAS TURNED BACK ON FOR LOW BP IN THE 70'S WILL CONTINUE TO MONITOR THIS PT AND HIS BP.
[2022-07-14] MEDS: METOCLOPRAMIDE HCL 10 MG/2 ML VIAL IV SCH ×4 (03:21→21:09)
[2022-07-14 04:56] LABS: EOSINOPHILS % (AUTO) 0.1 % (0.0-6.0); HEMATOCRIT 24 % (39-51); HEMOGLOBIN 7.7 g/dL (13.5-17.5); LYMPHOCYTES # (AUTO) 0.9 K/uL (0.8-4.8); LYMPHOCYTES % (AUTO) 4.5 % (20.0-44.0); MEAN CORPUSCULAR HGB CONC 32 g/dl (31.0-36.0); MEAN CORPUSCULAR VOLUME 96 fL (80-96); MONOCYTES # (AUTO) 0.6 K/uL (0.1-1.30); MONOCYTES % (AUTO) 3.1 % (2.0-12.0); NEUTROPHILS # (AUTO) 17.6 K/uL (1.8-8.9); NEUTROPHILS % (AUTO) 92.3 % (43.0-81.0); RED BLOOD CELL COUNT(AUTO) 2.48 MIL/uL (4.5-6.0); WHITE BLOOD COUNT (AUTO) 19.1 K/uL (4.3-11.0)
[2022-07-14 04:58] LABS: PLATELET COUNT (AUTO) 39 K/uL (150-450)
[2022-07-14 05:13] LABS: CALCIUM, SERUM 7.4 mg/dL (8.5-10.1); CREATININE 1.5 mg/dL (0.6-1.3)
--- NOTE | 2022-07-14 05:30 | NUR ---
ICU/RESTAURANT AND BAR MANAGER SEDATION OF FENT. WAS TITRATED DOWN FOR STABLE BP, WILL CONTINUE TO MONITOR THIS PT WHILE INTUBATED ON VENT.
[2022-07-14] MEDS: MEROPENEM 1 G in IV NS 0.9% 100 ML IV SCH ×2 (05:36→17:29)
[2022-07-14] MEDS: HYDROCORTISONE SOD SUCCINATE 100 MG/2 ML VIAL IV SCH ×3 (05:36→20:59)
[2022-07-14 05:47] LABS: BAND % (MANUAL) 14 % (0.0-5.0); BASOPHILS % (MANUAL) 0 % (0.0-2.0); EOSINOPHILS % (MANUAL) 0 % (0-4); LYMPHOCYTES % (MANUAL) 5 % (16-48); MONOCYTES % (MANUAL) 3 % (0-11.0); NEUTROPHILS % (MANUAL) 78 (42-76)
--- NOTE | 2022-07-14 06:18 | NUR ---
ICU/STRATEGIC PLANNING DIRECTOR ELIZA WAS TURNED ON DUE TO LOW BP AND SEDATION WAS LOWED DOWN TO 25MCG. WILL MONITOR THIS PT.
--- NOTE | 2022-07-14 06:25 | NUR ---
ICU/[place] HISTORY PROFESSOR DAIRY FARM SUPERVISOR DON CABRAL MADE AWARE AM LAB OF PLT IS 39 FROM 57 YESTERDAY, NO NEW ORDERS FOR NOW.
--- NOTE | 2022-07-14 08:00 | NUR ---
RN NOTES RECEIVED PATIENT ON ETT/VENT SEDATED FENTANYL 25MCG/KG/HR. NO ACUTE RESPIRATORY DISTRESS. PATIENT ON NEOSYNEPHRINE 0.4 MCG/KG/HR, D5W@75 ML/HR ON PANCHO PICC LINE INTACT, BRIAN ON RIGHT GROIN PATENT, ZEROED. PATIENT HAS GENERALIZED EDEMA, DISTENDED ABDOMEN. ASSIST TURN AND REPOSTION Q 2 HR, SEEN HOSPITALIST AND GET VERBAL ORDER RECTAL SUPPOSITORY , AND MIRALAX VIA GT, ORDER TAKEN AND CARRIED OUT.
--- NOTE | 2022-07-14 08:09 | NUR ---
RN NOTES GET ORDER VIA Dr GALVAN TO STOP SEDATION FENTANYL 25MCGKG/HR FOR SEDATION VACATION. ORDER TAKEN AND CARRIED OUT.
[2022-07-14] MEDS ORDERED: MAGNESIUM CITRATE 296 ML BOTTLE PO ONE (09:00)
--- NOTE | 2022-07-14 10:30 | NUR ---
rn notes Administered rectal suppository, and Miralax for constipation. assist turn and reposition, due medication administered via GT, suction moth care done. patient eyes is open, no acute respiratory distress, tolerating ETT setting well, calm and cooperative.
[2022-07-14] MEDS: LEVETIRACETAM SOL (5 ML) 100 MG/ML UDC GT SCH ×2 (10:33→21:41)
[2022-07-14] MEDS: CARBIDOPA/LEVODOPA 25/100 MG 1 UDTAB GT SCH ×3 (10:34→17:29)
[2022-07-14] MEDS: VALPROIC ACID 250 MG/5 ML UDC GT SCH ×2 (10:34→21:41)
[2022-07-14] MEDS: AMANTADINE HCL 100 MG CAPSULE GT SCH ×3 (10:34→17:29)
[2022-07-14] MEDS: POLYETHYLENE GLYCOL 3350 17 GM POWD.PACK PO PRN (10:34)
[2022-07-14] MEDS: GABAPENTIN 300 MG CAPSULE GT SCH ×4 (10:34→21:41)
[2022-07-14] MEDS: BISACODYL SUPP (10 MG) 10 MG/SUPP.RECT SUPP.RECT RC PRN (10:35)
[2022-07-14] MEDS: MUPIROCIN OINT 2% 22 GM TUBE NS SCH ×2 (10:35→21:42)
[2022-07-14] MEDS: DOXYCYCLINE 100 MG in IV D5W 100 ML IV SCH ×2 (10:38→21:00)
[2022-07-14] MEDS: IV D5W 1,000 ML IV SCH ×2 (10:43→23:56)
--- NOTE | 2022-07-14 13:00 | NUR ---
RN NOTES GT FREE WATER FLASH NOT GIVEN, BECAUSE PATIENT ABDOMEN DISTENDED, AND LEAKING FROM GT. WILL FOLLOW UP.
[2022-07-14] MEDS: JEVITY 1.2 CAL 1,000 ML BOTTLE GT PRN (17:38)
--- NOTE | 2022-07-14 18:27 | NUR ---
rn kayla pm care done, suction, mouth care, due medication administered, patient on armando price, t-[id number], has no sedation, eyes is open, no acute respiratory distress, picc line, and A line patent, infusing norsynephrine 0.3 mcg/kg/min, D5w running @75 ml/hr , running Jevity 1/2 @10ml/hr. assist turn and reposition q 2 hr. urine output was 1100ml. medicATION WERE ADMINISTERED FOR CONSTIPATION NOT EFFECTIVE YET. Endorsed oncoming nurse taisha.,
--- NOTE | 2022-07-14 19:25 | NUR ---
ICU/DISPLAY DESIGNER RECEIVED REPORT FROM DAY NURSE. PT APPEARS TO BE IN SOME DISTRESS. PT'S HEART RATE IS 120'S AND RESPIRATIONS ARE IN THE 30'S. TEMP IS 100.6 AX. THE BEUR HUGGER WAS REMOVED, STARTED COOLING MEASURES IN PLACE. WILL CONTINUE TO MONITOR THIS PT.
[2022-07-14] MEDS: PRAMIPEXOLE DI-HCL 0.25 MG TABLET GT SCH (21:41)
[2022-07-14] MEDS: ACETAMINOPHEN 650 MG/20.3 ML UDC PEG PRN (21:41)
--- NOTE | 2022-07-14 22:30 | NUR ---
ICU/SAFETY EQUIPMENT TESTING SPECIALIST PT WAS GIVEN TYLENOL VIA G/TUBE FOR THE TEMP OF 100.6 FROM JOSEPHINEER. WILL CONTINUE TO MONITOR THIS PT AND HIS TEMP.
[2022-07-14] MEDS: PHENYLEPHRINE 100 MG in IV NS 0.9% 240 ML IV PRN (22:54)
[2022-07-15] VITALS (102 sets, daily range): BP systolic 73–141; BP diastolic 35–81
[2022-07-15] MEDS: LORAZEPAM INJ 2 MG/ML VIAL IV PRN ×3 (00:01→21:03)
--- NOTE | 2022-07-15 00:19 | NUR ---
ICU/CONCRETE TILE MACHINE OPERATOR PT'S HEART RATE IS 120'S TO 130'S WITH RESPIRATIONS IN THE 30'S TO 40'S. PT STILL APPEARS TO BE IN DISTRESS, PT IS BELLY BREATHING, UNABLE TO START SEDATION OF DIPRIVAN DUE TO HIGH TRIGLYCERIDES FROM 07/12 900'S. CHARGE NURSE MADE AWARE, ATIVAN WAS GIVEN PRN FOR THIS. CURRENTLY PHARMACY IS CLOSED UNABLE TO START FENT. FOR SEDATION. WILL CONTINUE TO MONITOR THIS PT.
[2022-07-15] MEDS ORDERED: NA PHOS,M-B/NA PHOS,DI-BA 1 EA ENEMA RC PRN ×2 (02:00)
--- NOTE | 2022-07-15 02:00 | NUR ---
ICU/EARLY CHILDHOOD EDUCATOR AIDE 0200-STARTED ELIZA FOR LOW BP BY SELF PAY REPRESENTATIVE NURSE, 70'S-80'S. 0230-FLEETS ENEMA WAS GIVEN FOR CONSTIPATION AND MIRALAX WAS GIVEN THROUGH G/TUBE. WILL MONITOR THIS PT'S BP AND BM.
[2022-07-15] MEDS ORDERED: NA PHOS,M-B/NA PHOS,DI-BA 1 EA ENEMA RC ONE (02:30)
[2022-07-15] MEDS: POLYETHYLENE GLYCOL 3350 17 GM POWD.PACK PO PRN (02:44)
[2022-07-15] MEDS: METOCLOPRAMIDE HCL 10 MG/2 ML VIAL IV SCH ×4 (02:54→20:31)
[2022-07-15] MEDS ORDERED: PHENYLEPHRINE 100 MG in IV NS 0.9% 240 ML IV PRN (03:30)
[2022-07-15] MEDS: HYDROCORTISONE SOD SUCCINATE 100 MG/2 ML VIAL IV SCH ×3 (04:41→20:31)
[2022-07-15 04:58] LABS: BASOPHILS % (AUTO) 0.1 % (0.0-2.0); EOSINOPHILS % (AUTO) 0.1 % (0.0-6.0); HEMATOCRIT 21 % (39-51); LYMPHOCYTES # (AUTO) 1.4 K/uL (0.8-4.8); LYMPHOCYTES % (AUTO) 6.2 % (20.0-44.0); MEAN CORPUSCULAR HGB CONC 32 g/dl (31.0-36.0); MEAN CORPUSCULAR VOLUME 96 fL (80-96); MONOCYTES # (AUTO) 0.7 K/uL (0.1-1.30); MONOCYTES % (AUTO) 3.2 % (2.0-12.0); NEUTROPHILS # (AUTO) 20.8 K/uL (1.8-8.9); NEUTROPHILS % (AUTO) 90.4 % (43.0-81.0); RED BLOOD CELL COUNT(AUTO) 2.17 MIL/uL (4.5-6.0); WHITE BLOOD COUNT (AUTO) 23.1 K/uL (4.3-11.0)
[2022-07-15 04:59] LABS: HEMOGLOBIN 6.7 g/dL (13.5-17.5); PLATELET COUNT (AUTO) 38 K/uL (150-450)
--- NOTE | 2022-07-15 05:00 | NUR ---
ICU/FISHING VESSEL DECKHAND PT'S BP IS STABLE AT THIS TIME. THERE WAS NO BM FROM THE FLEETS AND OTHER PRN MEDICATION.
[2022-07-15 05:08] LABS: CALCIUM, SERUM 7.5 mg/dL (8.5-10.1); CREATININE 1.5 mg/dL (0.6-1.3); MAGNESIUM 2.9 mg/dL (1.8-2.4); PHOSPHORUS 4.2 mg/dL (2.5-4.9); POTASSIUM 3.7 mmol/L (3.5-5.1)
[2022-07-15] MEDS: MEROPENEM 1 G in IV NS 0.9% 100 ML IV SCH ×2 (05:09→17:15)
[2022-07-15 05:31] LABS: BAND % (MANUAL) 6 % (0.0-5.0); LYMPHOCYTES % (MANUAL) 8 % (16-48); NEUTROPHILS % (MANUAL) 70 (42-76)
[2022-07-15 05:32] LABS: BASOPHILS % (MANUAL) 0 % (0.0-2.0); EOSINOPHILS % (MANUAL) 0 % (0-4); MONOCYTES % (MANUAL) 16 % (0-11.0)
--- NOTE | 2022-07-15 07:50 | NUR ---
PATIENT INITIAL SHIFT ASSESSMENT DONE, ORALLY INTUBATED TO FULL VENT SUPPORT, OFF SEDATION, WITH SPONTANEOUS BREATHING OVER THE VENT WITHOUT DISTRESS. GRIMACES TO TACTILE STIMULI, POSITIVE GAG/COUGH REFLEX. SUCTIONED MINIMAL LOCKHART SECRETIONS ORALLY/ETT, ORAL CARE DONE. SR 70'S ON MONITOR. REMAINS ON ELIZA GTT AT .3 MCG/KG/MIN-WILL TITRATE ABLE. TF AT 10 MLS/HR , NO RESIDUALS NOTED. WILL CONTINUE TO MONITOR TOLERANCE. FC WITH ADEQUATE YELLOW URINE OUTPUT. AFEBRILE.
[2022-07-15] MEDS: LEVETIRACETAM SOL (5 ML) 100 MG/ML UDC GT SCH ×2 (08:48→21:06)
[2022-07-15] MEDS: CARBIDOPA/LEVODOPA 25/100 MG 1 UDTAB GT SCH ×3 (08:48→16:46)
[2022-07-15] MEDS: VALPROIC ACID 250 MG/5 ML UDC GT SCH ×2 (08:48→21:06)
[2022-07-15] MEDS: GABAPENTIN 300 MG CAPSULE GT SCH ×4 (08:48→21:06)
[2022-07-15] MEDS: AMANTADINE HCL 100 MG CAPSULE GT SCH ×3 (08:48→16:45)
[2022-07-15] MEDS: MUPIROCIN OINT 2% 22 GM TUBE NS SCH ×2 (08:49→21:07)
[2022-07-15] MEDS: DOXYCYCLINE 100 MG in IV D5W 100 ML IV SCH ×2 (08:58→20:31)
--- NOTE | 2022-07-15 09:45 | NUR ---
H/H 6.. ORDER FOR 1 UNIT PRBC. TYPE / CROSS 1 UNIT. TELEPHONE CONSENT FOR BLOOD TRANSFUSION OBTAINED FROM PATIENT DAUGHTER MANASA. PATIENT UPDATE OF CONDITION GIVEN TO FAMILY.
--- NOTE | 2022-07-15 10:30 | NUR ---
PATIENT SEEN AND EXAMINED BY DR. ARCEO- GABRIELAO GIVEN.
--- NOTE | 2022-07-15 10:45 | NUR ---
SPUTUM CULTURE SAMPLE COLLECTED AND SENT TO LAB.
--- NOTE | 2022-07-15 12:00 | NUR ---
OPENS EYES SPONTANEOUSLY AT TIMES, EASILY GRIMACES TO PAIN, , AFEBRILE, ELIZA AT .2 MCG/KG/MIN. SUCTIONED AND REPOSITIONED.
--- NOTE | 2022-07-15 13:20 | NUR ---
BLOOD TRANSFUSION STARTED PER PROTOCOL.
[2022-07-15] MEDS: IV D5W 1,000 ML IV SCH (13:55)
--- NOTE | 2022-07-15 16:00 | NUR ---
BLOOD TRANSFUSION COMPLETED WITHOUT A/R NOTED.
[2022-07-15] MEDS: PHENYLEPHRINE 50 MG in IV NS 0.9% 245 ML IV PRN (17:17)
[2022-07-15] MEDS: JEVITY 1.2 CAL 1,000 ML BOTTLE GT PRN (17:53)
--- NOTE | 2022-07-15 18:00 | NUR ---
ATTEMPT TO WEAN OFF ELIZA AT THIS TIME WITH SBP>130. REMAISN SR 80'S. AFEBRILE. MINIMAL SECRETIONS. NO SIGNS OF CP DISTRESS. NEEDS ANTICIPATED.
--- NOTE | 2022-07-15 18:30 | NUR ---
SBP DOWN TO 80'S POST ATTEMPT TO WEAN OFF FROM ELIZA-RESUMED AT 0.1 MCK/KG/MIN.
--- NOTE | 2022-07-15 20:50 | NUR ---
ICU/MEDICAL RESEARCH ASSISTANT FIO2 WAS INCREASED TO 80 FROM 60 DUE TO LOW SATURATION OF 88-87%. WILL MONITOR THIS PT AND HIS SATURATION, PT WAS ALSO SUCTIONED GOT LARGE BROWN CLOT IN ETT. PT ALSO HAD INCREASED RESP. RATE TO 30'S-40'S, NOTIFED JEWELRY SALES NURSE WHO GAVE ATIVAN 2MG IVP FOR THIS. WILL MONITOR THIS PT AND HIS RESP. RATE.
[2022-07-15] MEDS: PRAMIPEXOLE DI-HCL 0.25 MG TABLET GT SCH (21:06)
[2022-07-15] MEDS: BISACODYL SUPP (10 MG) 10 MG/SUPP.RECT SUPP.RECT RC PRN (21:06)
--- NOTE | 2022-07-15 22:00 | NUR ---
ICU/ELEVATOR CONDUCTOR PT HAD NOT HAD A BM YET, DULCOLAX SUPPOSITORY WAS GIVEN TO HELP PT HAVE BM.
--- NOTE | 2022-07-15 23:00 | NUR ---
ICU/OYSTER CULTURIST PT'S BLOOD PRESSURE IS STABLE IN THE 120'S, CHARGE NURSE RN WAS NOTIFED WHO THEN TURNED OFF THE ELIZA. WILL CONTINUE TO MONITOR THIS PT AND HIS BLOOD PRESSURE.
[2022-07-16] VITALS (89 sets, daily range): BP systolic 74–161; BP diastolic 46–93
[2022-07-16] MEDS: METOCLOPRAMIDE HCL 10 MG/2 ML VIAL IV SCH ×4 (02:17→21:39)
[2022-07-16 04:49] LABS: BASOPHILS # (AUTO) 0.1 K/uL (0.0-0.2); BASOPHILS % (AUTO) 0.2 % (0.0-2.0); EOSINOPHILS % (AUTO) 0.7 % (0.0-6.0); HEMATOCRIT 26 % (39-51); HEMOGLOBIN 8.5 g/dL (13.5-17.5); LYMPHOCYTES # (AUTO) 1.5 K/uL (0.8-4.8); LYMPHOCYTES % (AUTO) 6.7 % (20.0-44.0); MEAN CORPUSCULAR HGB CONC 33 g/dl (31.0-36.0); MEAN CORPUSCULAR VOLUME 92 fL (80-96); MONOCYTES # (AUTO) 0.9 K/uL (0.1-1.30); NEUTROPHILS # (AUTO) 19.7 K/uL (1.8-8.9); NEUTROPHILS % (AUTO) 88.4 % (43.0-81.0); RED BLOOD CELL COUNT(AUTO) 2.78 MIL/uL (4.5-6.0); WHITE BLOOD COUNT (AUTO) 22.3 K/uL (4.3-11.0)
[2022-07-16 04:56] LABS: PLATELET COUNT (AUTO) 35 K/uL (150-450)
[2022-07-16 04:59] LABS: CALCIUM, SERUM 6.9 mg/dL (8.5-10.1); CREATININE 1.2 mg/dL (0.6-1.3); MAGNESIUM 2.7 mg/dL (1.8-2.4); POTASSIUM 3.5 mmol/L (3.5-5.1)
[2022-07-16] MEDS: HYDROCORTISONE SOD SUCCINATE 100 MG/2 ML VIAL IV SCH ×3 (05:25→21:39)
[2022-07-16] MEDS: MEROPENEM 1 G in IV NS 0.9% 100 ML IV SCH ×2 (05:25→17:59)
[2022-07-16] MEDS: IV D5W 1,000 ML IV SCH (05:27)
[2022-07-16 05:58] LABS: BAND % (MANUAL) 8 % (0.0-5.0); BASOPHILS % (MANUAL) 0 % (0.0-2.0); EOSINOPHILS % (MANUAL) 1 % (0-4); LYMPHOCYTES % (MANUAL) 12 % (16-48); MONOCYTES % (MANUAL) 7 % (0-11.0); NEUTROPHILS % (MANUAL) 72 (42-76)
--- NOTE | 2022-07-16 06:15 | NUR ---
ICU/DIRECTOR [facility] PT WAS BREATHING FAST WITH RR IN THE 30'S, PT IS CURRENTLY INTUBATED WITH NO SEDATION, GAVE RN GAVE ATIVAN PRN IVP FOR THIS. WILL CONTINUE TO MONITOR THIS PT AND HIS SATURATION.
[2022-07-16] MEDS: LORAZEPAM INJ 2 MG/ML VIAL IV PRN (06:28)
--- NOTE | 2022-07-16 06:53 | NUR ---
ICU/FILENET ARCHITECT PT'S SATURATION FELL TO LOW 60'S WITH FIO2 AT 100%. RT AT BEDSIDE BAGGING PT FOR LOW SATUATION . TOOK ABOUT 10-15 MINUTES TO BRING UP SAT'S. PT'S HEART RATE DROPPED , WILL MONITOR THIS PT.
--- NOTE | 2022-07-16 08:00 | NUR ---
rn notes received patient hr 76 at this time, hr back to normal, patient has DEFIB pads on, because of draped HR , and saturation podiatrist orthopedic per night nurse. Patient has generalized edema, rechecked placement and residual, due medication administered, bp 155/66, fio2-99%. on ett setting fi02-80%, peep-10 , suction mouth care done, abdomen is hard, assist turn and reposition, picc line, and A line intact infusing d5@75 ml/hr. Seen hospitalist, and noted to continued GT free water flash 300 ml q8hr, urine output is 300 ml at this time, will follow up.
[2022-07-16] MEDS: AMANTADINE HCL 100 MG CAPSULE GT SCH ×3 (08:29→17:59)
[2022-07-16] MEDS: CARBIDOPA/LEVODOPA 25/100 MG 1 UDTAB GT SCH ×3 (08:29→17:59)
[2022-07-16] MEDS: DOXYCYCLINE 100 MG in IV D5W 100 ML IV SCH ×2 (08:29→21:39)
[2022-07-16] MEDS: VALPROIC ACID 250 MG/5 ML UDC GT SCH ×2 (08:29→21:32)
[2022-07-16] MEDS: GABAPENTIN 300 MG CAPSULE GT SCH ×4 (08:29→21:31)
[2022-07-16] MEDS: LEVETIRACETAM SOL (5 ML) 100 MG/ML UDC GT SCH ×2 (08:29→21:31)
[2022-07-16] MEDS: MUPIROCIN OINT 2% 22 GM TUBE NS SCH ×2 (08:30→21:32)
--- NOTE | 2022-07-16 11:00 | NUR ---
rn notes patient desaturating at this time fio2-76%, suction, reposition, RT next to the bed, after suctioning fio2-80%, hr-89, bp 162/65. r-22. will follow up..
--- NOTE | 2022-07-16 14:41 | NUR ---
RN NOTES PER HOSPITALIST Dr QUINTEROS STOP IV D5 INFUSION, AND START FREE WATER FLASH 300 ML Q 8HR ORDER TAKEN AND CARRIED OUT.
[2022-07-16] MEDS: JEVITY 1.2 CAL 1,000 ML BOTTLE GT PRN (17:45)
--- NOTE | 2022-07-16 17:57 | NUR ---
RT PATIENT REMAINS ORALLY INTUBATED ON [facility] VENT WITH ORDERED SETTINGS IN CRITICAL CONDITION. PATIENT REMAINS ON 100% DO TO DESATURATION. PATIENT NON RESPONSIVE, SX'D ELIZABETH, ERICA BAG AT HOB Addendum: 07/16/22 at 1759 by BETHANY TEAGUE RT Amended: Links added.
--- NOTE | 2022-07-16 18:35 | NUR ---
RN NOTES PATIENT REMAIN CRITICAL CONDITION, PM CARE , SUCTION MOUTH CARE DONE , DUE MEDICATION ADMINISTERED, ASSIST TURN AND REPOSTION Q 2 HR. BP 104/42 ON A LINE, , HR-102. VENT SEETHING FIO2- 100%, PEEP-10. NO RESIDUAL, NO LEAKAGE , RUNNING JEVITY 20ML/HR, LOZA DRAINING LIGHT YELLOW OUTPUT WAS 1800ML. ENDORSED ONCOMING NURSE ALANIS.
--- NOTE | 2022-07-16 19:25 | NUR ---
ICU/EQUIPMENT MANAGER RECIEVED REPORT FROM DAY NURSE, SATURATION WAS IN THE 70'S WITH A GOOD FORM. PT WAS AGGRESSIVELY SUCTIONED AND REPOSIONED WITH PILLOWS ON THE LEFT SIDE. SAT'S SLOWLY CAME UP OVER 5 MINUTES TO 98%. WILL MONITOR THIS PT AND HIS SATURATION
[2022-07-16] MEDS: PRAMIPEXOLE DI-HCL 0.25 MG TABLET GT SCH (21:31)
[2022-07-17] VITALS (91 sets, daily range): BP systolic 109–153; BP diastolic 48–84
--- NOTE | 2022-07-17 00:10 | NUR ---
ICU/PHOTO MASK INSPECTOR PT IS BEING REPOSIONED FROM BACK THEN TO THE LEFT SIDE DUE TO LOW SATURATION. WILL MONITOR THIS PT.
[2022-07-17] MEDS: IV NS 0.9% 250 ML IV PRN ×2 (00:57→20:45)
[2022-07-17] MEDS: METOCLOPRAMIDE HCL 10 MG/2 ML VIAL IV SCH ×4 (03:24→21:17)
[2022-07-17 04:39] LABS: BASOPHILS % (AUTO) 0.1 % (0.0-2.0); EOSINOPHILS % (AUTO) 0.1 % (0.0-6.0); HEMATOCRIT 27 % (39-51); LYMPHOCYTES # (AUTO) 1.3 K/uL (0.8-4.8); LYMPHOCYTES % (AUTO) 5.1 % (20.0-44.0); MEAN CORPUSCULAR HGB CONC 33 g/dl (31.0-36.0); MEAN CORPUSCULAR VOLUME 93 fL (80-96); MONOCYTES # (AUTO) 0.8 K/uL (0.1-1.30); MONOCYTES % (AUTO) 3.3 % (2.0-12.0); NEUTROPHILS # (AUTO) 23.1 K/uL (1.8-8.9); NEUTROPHILS % (AUTO) 91.4 % (43.0-81.0); RED BLOOD CELL COUNT(AUTO) 2.93 MIL/uL (4.5-6.0); WHITE BLOOD COUNT (AUTO) 25.2 K/uL (4.3-11.0)
[2022-07-17 04:52] LABS: PLATELET COUNT (AUTO) 41 K/uL (150-450)
[2022-07-17 04:53] LABS: CALCIUM, SERUM 7.9 mg/dL (8.5-10.1); POTASSIUM 3.6 mmol/L (3.5-5.1)
--- NOTE | 2022-07-17 05:20 | NUR ---
ICU/RAILROAD TRACK INSPECTOR PT'S SATURATION FELL TO 80'S, PT REQUIRED AGGRESSIVE SUCTION, AND ORAL SUCTION. PT REPOSITIONED TO THE RIGHT SIDE WITH PILLOWS UNDER THE LEFT. SAT'S SLOWLY CAME UP. WILL MONITOR
[2022-07-17] MEDS: HYDROCORTISONE SOD SUCCINATE 100 MG/2 ML VIAL IV SCH ×2 (05:28→21:16)
[2022-07-17] MEDS: MEROPENEM 1 G in IV NS 0.9% 100 ML IV SCH ×3 (05:28→20:37)
--- NOTE | 2022-07-17 07:28 | NUR ---
WOUND CARE CONSULT: PT PRESENTS WITH HELEN SCORE OF 10, CURRENTLY INTUBATED WITH RT 2ND TOE DRY ESCHAR AND RT ANKLE AND KNEE SCARS, PRESENT ON ADMISSION. PT NOTED TO HAVE GENERALIZED EDEMA. RECOMMENDATIONS MADE FOR SKIN PROTECTION. DISCUSSED WITH NURSING STAFF. FIRST STEP LOW AIRLOSS MATTRESS ORDERED. MD IN AGREEMENT WITH PLAN OF CARE. Addendum: 07/17/22 at 0731 by XIMENA MARCELO WNDNU DPM CONSULT TO BE CALLED TO DR MEENAKSHI SOARES AM.
[2022-07-17] MEDS ORDERED: Z GUARD REMEDY 4 OZ OINT TP PRN (07:30)
--- NOTE | 2022-07-17 08:00 | NUR ---
RN NOTES PATIENT REMAIN CRITICAL, FUL CODE, FIO2-90%, PEEP-10, ON BEDSIDE MONITOR SHOWS HAT 99%. SUCTION, MOUTH CARE DONE, DUE MEDICATION ADMINISTERED, NO RESIDUAL ,TOLERATING FEEDING WELL,, DUE MEDICATION ADMINISTERED, VSS, PICC LINE, AND A LINE INTACT, INFUSING TKO @10ML/HR. RUNNING JEVITY 20ML/HR INTACT. TOLERATING FEEDING GOOD. KEEP HOB ELEVATED FOR ASPIRATION PRECAUTION. LOZA DRAINING VIA GRAVITY WELL. FLASHED VIA BRENDAN
[2022-07-17 08:31] LABS: BAND % (MANUAL) 6 % (0.0-5.0); LYMPHOCYTES % (MANUAL) 6 % (16-48); METAMYELOCYTES % 1 % (0-0); MONOCYTES % (MANUAL) 8 % (0-11.0); MYELOCYTES % 1 % (0-0); NEUTROPHILS % (MANUAL) 78 (42-76)
[2022-07-17] MEDS: DOXYCYCLINE 100 MG in IV D5W 100 ML IV SCH ×2 (08:41→21:11)
[2022-07-17] MEDS: AMANTADINE HCL 100 MG CAPSULE GT SCH ×3 (08:43→16:15)
[2022-07-17] MEDS: CARBIDOPA/LEVODOPA 25/100 MG 1 UDTAB GT SCH ×3 (08:43→16:15)
[2022-07-17] MEDS: MUPIROCIN OINT 2% 22 GM TUBE NS SCH ×2 (08:43→21:17)
[2022-07-17] MEDS: VALPROIC ACID 250 MG/5 ML UDC GT SCH ×2 (08:43→21:17)
[2022-07-17] MEDS: GABAPENTIN 300 MG CAPSULE GT SCH ×4 (08:43→21:16)
[2022-07-17] MEDS: LEVETIRACETAM SOL (5 ML) 100 MG/ML UDC GT SCH ×2 (09:01→21:18)
[2022-07-17] MEDS: BISACODYL SUPP (10 MG) 10 MG/SUPP.RECT SUPP.RECT RC PRN (16:39)
[2022-07-17] MEDS: POLYETHYLENE GLYCOL 3350 17 GM POWD.PACK PO PRN (16:39)
--- NOTE | 2022-07-17 16:39 | NUR ---
rn notes administered rectal suppository, and miralax for constipation.
[2022-07-17] MEDS: JEVITY 1.2 CAL 1,000 ML BOTTLE GT PRN (17:29)
--- NOTE | 2022-07-17 18:30 | NUR ---
RN NOTES PATIENT REMAINING CRITICAL , LEFT EYES IS ABLE TO OPEN, TOLERATING ETT SETTING WELL. FIO2-80%, PEEP IS 10. A LINE, AND PICC LINE INTACT. RUNNING JEVITY 1.2 @50ML/HR. INFUSING TKO @10ML/HR INTACT. ASSIST TURN AND REPOSTION Q 2 HR. PM CARE DONE. DUE MEDICATION ADMINISTERED. ENDORSED ONCOMING NURSE ALANIS.
[2022-07-17] MEDS: PRAMIPEXOLE DI-HCL 0.25 MG TABLET GT SCH (21:16)
[2022-07-18] VITALS (59 sets, daily range): BP systolic 101–173; BP diastolic 59–89
[2022-07-18] MEDS: METOCLOPRAMIDE HCL 10 MG/2 ML VIAL IV SCH ×4 (02:52→21:28)
--- NOTE | 2022-07-18 03:30 | NUR ---
ICU/RN: PER DYAN STATE DIRECTOR ORDER A-LINE REMOVED. PRESSURE DRESSING APPLIED. NO BLEEDING NOTED.
[2022-07-18] MEDS: MEROPENEM 1 G in IV NS 0.9% 100 ML IV SCH ×3 (05:06→21:28)
[2022-07-18 05:10] LABS: BASOPHILS # (AUTO) 0.1 K/uL (0.0-0.2); BASOPHILS % (AUTO) 0.2 % (0.0-2.0); EOSINOPHILS % (AUTO) 0.1 % (0.0-6.0); HEMATOCRIT 27 % (39-51); HEMOGLOBIN 8.7 g/dL (13.5-17.5); LYMPHOCYTES # (AUTO) 1.1 K/uL (0.8-4.8); LYMPHOCYTES % (AUTO) 3.9 % (20.0-44.0); MEAN CORPUSCULAR HGB CONC 32 g/dl (31.0-36.0); MEAN CORPUSCULAR VOLUME 95 fL (80-96); MONOCYTES # (AUTO) 0.9 K/uL (0.1-1.30); MONOCYTES % (AUTO) 3.5 % (2.0-12.0); NEUTROPHILS # (AUTO) 24.9 K/uL (1.8-8.9); NEUTROPHILS % (AUTO) 92.3 % (43.0-81.0); PLATELET COUNT (AUTO) 71 K/uL (150-450); RED BLOOD CELL COUNT(AUTO) 2.89 MIL/uL (4.5-6.0); WHITE BLOOD COUNT (AUTO) 26.9 K/uL (4.3-11.0)
[2022-07-18 05:26] LABS: CALCIUM, SERUM 7.7 mg/dL (8.5-10.1); CREATININE 0.9 mg/dL (0.6-1.3); POTASSIUM 3.4 mmol/L (3.5-5.1)
--- NOTE | 2022-07-18 05:49 | NUR ---
ICU/RN: PT PLACED BACK ON 100 FIO2 BY RT. PT WAS DESATURATING. WILL CONTINUE WITH PLAN OF CARE.
--- NOTE | 2022-07-18 07:40 | NUR ---
ICU/RN PT IS INTUBATED ON THE VENT .AC MODE,FIO2-100%,SAT O2-95%,V/S STABLE ,AFEBRILE.RR-30 BPM. NOTIFIED.PT OPEN HIS EYES,REACTIVE ON PAIN STIMULATION ONLY,NON-VERBAL. HAS ENCEPHALOPATHY.RIGHT UPPER ARM PICC LINE.F/C IN PLACE DRAINING WITH YELLOW URINE. G-TUBE INFUSING WITH JEVITY AT 50 ML/HR.NO RESIDUAL NOTED. G-TUBE SIDE IS LEAKING.GENERALIZED EDEMA PRESENT.LABS REVIEW.MD NOTIFIED.K-3.4. NEW ORDERS RECEIVED.SUCTION PROVIDED.[id number] FOR COMFORT.
[2022-07-18 07:47] LABS: ABG BASE EXCESS 2.4 mmol/L; ABG PH 7.419 (7.350-7.450); ABG PO2 75.6 mmHg (75.0-100.0); AaDO2 594.4 mmHg; COHb 0.3 % (0.5-1.5); MetHb 0.3 % (0.0-1.5); O2Hb 93.4 % (94.0-97.0); SITE, ABG Right Radial
--- NOTE | 2022-07-18 08:00 | NUR ---
ICU/RN ABG DONE. PEEP INCREASED TO 12.PT NEED SEDATION.DR GALVAN SEEN THE PT FENTANYL DRIP ORDERED.
[2022-07-18] MEDS: PROSOURCE / PROSTAT (PYXIS) 30 ML UDC GT SCH (08:10)
[2022-07-18] MEDS: HYDROCORTISONE SOD SUCCINATE 100 MG/2 ML VIAL IV SCH ×2 (08:11→10:05)
[2022-07-18] MEDS: AMANTADINE HCL 100 MG CAPSULE GT SCH ×3 (08:11→16:10)
[2022-07-18] MEDS: LEVETIRACETAM SOL (5 ML) 100 MG/ML UDC GT SCH ×2 (08:11→21:26)
[2022-07-18] MEDS: VALPROIC ACID 250 MG/5 ML UDC GT SCH ×2 (08:11→21:25)
[2022-07-18] MEDS: CARBIDOPA/LEVODOPA 25/100 MG 1 UDTAB GT SCH ×3 (08:11→16:10)
[2022-07-18] MEDS: GABAPENTIN 300 MG CAPSULE GT SCH ×4 (08:11→21:26)
[2022-07-18] MEDS: DOXYCYCLINE 100 MG in IV D5W 100 ML IV SCH ×2 (08:12→21:28)
[2022-07-18] MEDS: MUPIROCIN OINT 2% 22 GM TUBE NS SCH ×2 (08:13→21:26)
[2022-07-18] MEDS ORDERED: POTASSIUM CHLORIDE 20 MEQ POWDER PACKET GT ONE (09:00)
--- NOTE | 2022-07-18 09:06 | NUR ---
ICU/RN DUE MEDS ARE GIVEN ORDERED.
[2022-07-18] MEDS: FENTANYL CITRAT IV 2,500 MCG in IV NS 0.9% 200 ML IV PRN (09:36)
--- NOTE | 2022-07-18 09:54 | NUR ---
ICU/RN FENTANYL DRIP STARTED ORDERED FOR THE RESPIRATION CONTROL.PT HAD EPISODE OF V-TACH.MD NOTIFIED.
[2022-07-18] MEDS: LORAZEPAM INJ 2 MG/ML VIAL IV PRN (10:00)
--- NOTE | 2022-07-18 10:07 | NUR ---
ICU/RN PT IS AGITATED.ATIVAN IV GIVEN ORDERED.
[2022-07-18] MEDS: JEVITY 1.2 CAL 1,000 ML BOTTLE GT PRN (12:00)
[2022-07-18] MEDS: IV NS 0.9% 250 ML IV PRN (12:01)
[2022-07-18 12:17] LABS: BAND % (MANUAL) 7 % (0.0-5.0); LYMPHOCYTES % (MANUAL) 3 % (16-48); METAMYELOCYTES % 1 % (0-0); MONOCYTES % (MANUAL) 3 % (0-11.0); NEUTROPHILS % (MANUAL) 86 (42-76)
--- NOTE | 2022-07-18 17:09 | NUR ---
RT PATIENT REMAINS ORALLY INTUBATED ON [facility] VENT WITH ORDERED SETTINGS. PER DR GALVAN PEEP WAS INCREASED TO 12. AIRWAY SECURE AND PATENT. PATIENTREMAINS IN CRITICAL CONDITION. AMBU BAG AT HOB. Addendum: 07/18/22 at 1710 by BETHANY TEAGUE RT Amended: Links added.
--- NOTE | 2022-07-18 17:33 | NUR ---
ICU/RN PM CARE PROVIDED.WOUND DRESSING DONE ORDERED.DUE MEDS ARE GIVEN.PT IS ON FENTANYL DRIP TO CONTROL HIS RESPIRATION AND AGITATION.AFEBRILE.V/S STABLE.SUCTION PROVIDED.REPOSITION FOR COMFORT.
[2022-07-18] MEDS: PRAMIPEXOLE DI-HCL 0.25 MG TABLET GT SCH (21:26)
[2022-07-19] VITALS (43 sets, daily range): BP systolic 113–159; BP diastolic 64–91
[2022-07-19] MEDS: METOCLOPRAMIDE HCL 10 MG/2 ML VIAL IV SCH ×4 (03:04→21:21)
[2022-07-19] MEDS: MEROPENEM 1 G in IV NS 0.9% 100 ML IV SCH ×3 (04:05→21:21)
[2022-07-19 04:59] LABS: BASOPHILS % (AUTO) 0.1 % (0.0-2.0); EOSINOPHILS % (AUTO) 1.3 % (0.0-6.0); HEMATOCRIT 26 % (39-51); HEMOGLOBIN 8.2 g/dL (13.5-17.5); LYMPHOCYTES # (AUTO) 1.7 K/uL (0.8-4.8); LYMPHOCYTES % (AUTO) 7.6 % (20.0-44.0); MEAN CORPUSCULAR HGB CONC 31 g/dl (31.0-36.0); MEAN CORPUSCULAR VOLUME 96 fL (80-96); MONOCYTES # (AUTO) 1.1 K/uL (0.1-1.30); MONOCYTES % (AUTO) 4.7 % (2.0-12.0); NEUTROPHILS # (AUTO) 19.5 K/uL (1.8-8.9); NEUTROPHILS % (AUTO) 86.3 % (43.0-81.0); PLATELET COUNT (AUTO) 68 K/uL (150-450); RED BLOOD CELL COUNT(AUTO) 2.72 MIL/uL (4.5-6.0); WHITE BLOOD COUNT (AUTO) 22.6 K/uL (4.3-11.0)
[2022-07-19 05:22] LABS: CALCIUM, SERUM 7.9 mg/dL (8.5-10.1); CREATININE 0.8 mg/dL (0.6-1.3); POTASSIUM 4.1 mmol/L (3.5-5.1)
[2022-07-19 05:45] LABS: BAND % (MANUAL) 1 % (0.0-5.0); BASOPHILS % (MANUAL) 0 % (0.0-2.0); EOSINOPHILS % (MANUAL) 0 % (0-4); LYMPHOCYTES % (MANUAL) 4 % (16-48); MONOCYTES % (MANUAL) 9 % (0-11.0); NEUTROPHILS % (MANUAL) 86 (42-76)
[2022-07-19] MEDS: HYDROCORTISONE SOD SUCCINATE 100 MG/2 ML VIAL IV SCH (08:47)
[2022-07-19] MEDS: AMANTADINE HCL 100 MG CAPSULE GT SCH ×3 (08:47→17:22)
[2022-07-19] MEDS: LEVETIRACETAM SOL (5 ML) 100 MG/ML UDC GT SCH ×2 (08:47→21:19)
[2022-07-19] MEDS: VALPROIC ACID 250 MG/5 ML UDC GT SCH ×2 (08:48→21:19)
[2022-07-19] MEDS: CARBIDOPA/LEVODOPA 25/100 MG 1 UDTAB GT SCH ×3 (08:48→17:22)
[2022-07-19] MEDS: GABAPENTIN 300 MG CAPSULE GT SCH ×4 (08:48→21:19)
[2022-07-19] MEDS: DOXYCYCLINE 100 MG in IV D5W 100 ML IV SCH ×2 (08:56→21:21)
[2022-07-19] MEDS: LORAZEPAM INJ 2 MG/ML VIAL IV PRN (09:14)
[2022-07-19] MEDS: FENTANYL CITRAT IV 2,500 MCG in IV NS 0.9% 200 ML IV PRN (09:29)
[2022-07-19 09:50] LABS: ABG BASE EXCESS 3.5 mmol/L; ABG OXYGEN SATURATION 98.8 % (92.0-98.5); ABG PCO2 47.4 mmHg (35.0-45.0); ABG PH 7.402 (7.350-7.450); ABG PO2 210.9 mmHg (75.0-100.0); AaDO2 454.7 mmHg; COHb 0.3 % (0.5-1.5); MetHb 0.5 % (0.0-1.5); PEEP,BG 12 cm H2O; SITE, ABG Right Radial
[2022-07-19] MEDS: IV D5W 1,000 ML IV SCH ×3 (10:18→20:43)
[2022-07-19] MEDS: DESMOPRESSIN 4 MCG/ML AMPUL SQ SCH ×2 (10:34→22:20)
[2022-07-19] MEDS: MUPIROCIN OINT 2% 22 GM TUBE NS SCH ×2 (11:25→21:20)
[2022-07-19] MEDS: PROSOURCE / PROSTAT (PYXIS) 30 ML UDC GT SCH (11:26)
--- NOTE | 2022-07-19 17:33 | NUR ---
Non administered: Maintenance IVF infusing at this time
--- NOTE | 2022-07-19 18:00 | NUR ---
Cont Vent Support. Pt presents with Acute hypoxic respiratory failure. Cont IV Abs for Suspect pneumonia. Pt remains on High FIO2 and PEEP 12 possibly ARDS. Septic shock. Hemodynamically stable. remains off Vasopressors Acute encephalopathy. Opens eyes, Non responsive Good UOP noted. BUN/Cr WNL Cont to treat hypernatremia. Cont D5w Maintenence IVF and free water flushes No witness seizures. History of TBI Cont to Tolerate TF well via G TUbe. Hx of Chronic dysphagia Prognosis remains poor per PMD. Spoke to Patient Sister (POA), if patient condition worsens, may decide to do compassionate extubation
[2022-07-19] MEDS: PRAMIPEXOLE DI-HCL 0.25 MG TABLET GT SCH (21:19)
[2022-07-20] VITALS (44 sets, daily range): BP systolic 106–177; BP diastolic 53–95
[2022-07-20] MEDS: FENTANYL CITRAT IV 2,500 MCG in IV NS 0.9% 200 ML IV PRN ×3 (02:01→22:57)
[2022-07-20] MEDS: METOCLOPRAMIDE HCL 10 MG/2 ML VIAL IV SCH ×4 (03:39→21:41)
--- NOTE | 2022-07-20 04:00 | NUR ---
ICU/SIEBEL ARCHITECT PT APPEARED TO BE IN SOME SORT OF DISTRESS, LAW ENFORCEMENT OFFICER NURSE NOTIFED OF THIS INCREASED SEDATION TO 200MCG FROM 175MCG. INCREASED HEART RATE 120'S AND RESP. RATE IS 30'S TO 40'S, AND SATURATION DECREASED DOWN TO THE 70'S. WILL MONITOR THIS PT AND HIS SATURATION.
[2022-07-20] MEDS: LORAZEPAM INJ 2 MG/ML VIAL IV PRN ×3 (05:07→23:32)
[2022-07-20] MEDS: MEROPENEM 1 G in IV NS 0.9% 100 ML IV SCH ×3 (05:07→21:33)
[2022-07-20 05:12] LABS: BASOPHILS # (AUTO) 0.1 K/uL (0.0-0.2); BASOPHILS % (AUTO) 0.2 % (0.0-2.0); EOSINOPHILS % (AUTO) 2.2 % (0.0-6.0); HEMATOCRIT 27 % (39-51); HEMOGLOBIN 8.4 g/dL (13.5-17.5); LYMPHOCYTES # (AUTO) 2.2 K/uL (0.8-4.8); LYMPHOCYTES % (AUTO) 8.9 % (20.0-44.0); MEAN CORPUSCULAR HGB CONC 32 g/dl (31.0-36.0); MEAN CORPUSCULAR VOLUME 96 fL (80-96); NEUTROPHILS # (AUTO) 20.8 K/uL (1.8-8.9); NEUTROPHILS % (AUTO) 84.7 % (43.0-81.0); PLATELET COUNT (AUTO) 71 K/uL (150-450); RED BLOOD CELL COUNT(AUTO) 2.76 MIL/uL (4.5-6.0); WHITE BLOOD COUNT (AUTO) 24.6 K/uL (4.3-11.0)
[2022-07-20 05:21] LABS: CALCIUM, SERUM 8.2 mg/dL (8.5-10.1); CREATININE 0.7 mg/dL (0.6-1.3); POTASSIUM 4.2 mmol/L (3.5-5.1)
--- NOTE | 2022-07-20 05:35 | NUR ---
ICU/STRAND AND BINDER CONTROLLER PT APPEARED TO BE IN SOME SORT OF DISTRESS, IT HELP DESK ANALYST NURSE NOTIFED OF THIS INCREASED SEDATION TO 225MCG FROM 200MCG. INCREASED HEART RATE 130'S AND RESP. RATE IS 30'S TO 40'S, AND SATURATION DECREASED DOWN TO THE 60'S. WILL MONITOR THIS PT AND HIS SATURATION
--- NOTE | 2022-07-20 06:20 | NUR ---
ICU/LOCOMOTIVE INSPECTOR PT APPEARED TO BE IN DISTRESS, MACHINE CELL TUBER NURSE NOTIFED OF THIS INCREASED SEDATION TO 250MCG FROM 225MCG. INCREASED HEART RATE 130'S AND RESP. RATE IS 40'S, AND SATURATION DECREASED DOWN TO THE 60'S. WILL MONITOR THIS PT AND HIS SATURATION. ALSO PT WAS BAGGED BY RT FOR ABOUT 10 MINUTES. PT APPEARS TO HAVE CALM DOWN SOME. 0635-DR CLEMENT CAME IN D/C IVF OF D5W, DR QUINTEROS MADE AWARE OF THIS, ALSO ORDERED FOR A KUB.
--- NOTE | 2022-07-20 06:47 | NUR ---
ICU/DEPUTY BUILDING GUARD ALSO AT THIS TIME RT INCREASED THE FIO2 TO 100% FROM 70. WILL MONITOR THIS PT
--- NOTE | 2022-07-20 08:00 | NUR ---
RN NOTES PATIENT HAVING RESPIRATORY DISTRESS, STILL REMAINING ON CRITICAL CONDITION, RT NEXT TO THE PATIENT FOR DEEP SUCTIONING, HR-131 , per Dr GALVAN TITRATE UP FENTANYL, IF DOES NOT WORKING0 NEW ORDER IS START VERSED. O2-93%, BP139/79, P-126, 02-83, . DUE MEDICATION ADMINISTERED, RECHECKED RESIDUAL 0ML, KEEP HOB ELEVATED. PICC LINE INTACT ON PANCHO, . LOZA DRAINING VIA GRAVITY. PATIENT HAS GENERALIZED EDEMA, ETT SETTING PEEP-12, FIO2 WAS 100 %, PEEP 12, SUCTION, MOUTH CARE DONE, WILL MONITORING CLOSELY.
--- NOTE | 2022-07-20 08:12 | NUR ---
RN NOTES ADMINISTERED ATIVAN 2 MG/ML IV PUSH FOR RESPIRATORY DISTRESS. BP 139/79, R-47, P-136, 02-83%. TITRATED UP FENTANYL PER UNIT PROTOCOL PER Dr GRANT ORDER.
[2022-07-20] MEDS: DOXYCYCLINE 100 MG in IV D5W 100 ML IV SCH ×2 (08:39→20:00)
[2022-07-20] MEDS: AMANTADINE HCL 100 MG CAPSULE GT SCH ×3 (08:39→16:42)
[2022-07-20] MEDS: GABAPENTIN 300 MG CAPSULE GT SCH ×4 (08:39→21:37)
[2022-07-20] MEDS: VALPROIC ACID 250 MG/5 ML UDC GT SCH ×2 (08:40→21:37)
[2022-07-20] MEDS: LEVETIRACETAM SOL (5 ML) 100 MG/ML UDC GT SCH ×2 (08:40→21:37)
[2022-07-20] MEDS: CARBIDOPA/LEVODOPA 25/100 MG 1 UDTAB GT SCH ×3 (08:40→16:42)
[2022-07-20] MEDS: PROSOURCE / PROSTAT (PYXIS) 30 ML UDC GT SCH (08:43)
[2022-07-20] MEDS: MUPIROCIN OINT 2% 22 GM TUBE NS SCH ×2 (08:43→21:38)
[2022-07-20] MEDS: DESMOPRESSIN 4 MCG/ML AMPUL SQ SCH ×2 (08:47→21:38)
[2022-07-20] MEDS: IV D5W 1,000 ML IV SCH ×2 (09:06→19:20)
[2022-07-20] MEDS: MIDAZOLAM HCL 100 MG in IV NS 0.9% 80 ML IV PRN (10:13)
--- NOTE | 2022-07-20 10:28 | NUR ---
SS note: JOSH notified by charge nurse that we need to find out who is the pt.'s healthcare decision maker, and stated heres possibly a power of deputy attorney general for healthcare. JOSH called the pt.'s daughter, Peggy [phone] and the line sounded busy unable to leave voicemail. JOSH also called the pt.s' sister, Serene Lynn [phone] and left voicemail with SW call back number.
[2022-07-20] MEDS: JEVITY 1.2 CAL 1,000 ML BOTTLE GT PRN (15:28)
--- NOTE | 2022-07-20 16:03 | NUR ---
SS Note: JOSH called called the pt.s' sister, Serene Lynn [phone] regarding decision maker for healthcare again and Serene stated there is a submarine worker, Denisse whom JOSH may speak to. Per Serene she will call back in about 1 hour to provide SW with submarine worker's number. JOSH will call Story Editor when possible. Addendum: 07/20/22 at 1606 by TANIA MORENO JOSH discussed this with Cindy AMOS.
[2022-07-20] MEDS: POLYETHYLENE GLYCOL 3350 17 GM POWD.PACK PO PRN (16:42)
[2022-07-20] MEDS: BISACODYL SUPP (10 MG) 10 MG/SUPP.RECT SUPP.RECT RC PRN (16:42)
--- NOTE | 2022-07-20 16:43 | NUR ---
rn notes administered rectal suppository, and Miralax for constipation, als administered due medication. assist turn and reposition q 2 hr.
--- NOTE | 2022-07-20 18:20 | NUR ---
RN NOTES PM CARE DONE, DUE MEDICATION ADMINISTERED, INFUSING D5W@100ML/HR INTACT ON PANCHO PICC LINE VERSED 1 MCG/KG/MIN, AND FENTANYL 300MCG/KG/MIN. PATIENT HAS NO RESIDUAL RUNNING JEVITY @50ML/HR . KEEP HOB ELEVATED FOR ASPIRATION PRECAUTION, URINE OUTPUT WAS 1200ML. NOTES LEAKAGE FROM GT DURING FLASHING. MEDICATION WERE ADMINISTERED FOR CONSTIPATION NOT EFFECTIVE YET. ENDORSED ONCOMING NURSE ALANIS.
[2022-07-20] MEDS: PRAMIPEXOLE DI-HCL 0.25 MG TABLET GT SCH (21:37)
--- NOTE | 2022-07-20 23:30 | NUR ---
INTELLIGENCE AGENT PT DESATURATING TO MID 80s; INCREASED RR; VERSED INCREASED MEDICATED WITH ATIVAN.
[2022-07-21] VITALS (28 sets, daily range): BP systolic 78–128; BP diastolic 44–74
[2022-07-21] MEDS: METOCLOPRAMIDE HCL 10 MG/2 ML VIAL IV SCH ×4 (03:00→21:07)
[2022-07-21] MEDS: MEROPENEM 1 G in IV NS 0.9% 100 ML IV SCH (04:15)
[2022-07-21 04:31] LABS: BASOPHILS % (AUTO) 0.1 % (0.0-2.0); EOSINOPHILS % (AUTO) 5.1 % (0.0-6.0); HEMATOCRIT 26 % (39-51); HEMOGLOBIN 7.9 g/dL (13.5-17.5); LYMPHOCYTES # (AUTO) 1.7 K/uL (0.8-4.8); LYMPHOCYTES % (AUTO) 7.2 % (20.0-44.0); MEAN CORPUSCULAR HGB CONC 31 g/dl (31.0-36.0); MEAN CORPUSCULAR VOLUME 98 fL (80-96); MONOCYTES # (AUTO) 0.9 K/uL (0.1-1.30); MONOCYTES % (AUTO) 3.8 % (2.0-12.0); NEUTROPHILS # (AUTO) 19.4 K/uL (1.8-8.9); NEUTROPHILS % (AUTO) 83.8 % (43.0-81.0); PLATELET COUNT (AUTO) 52 K/uL (150-450); RED BLOOD CELL COUNT(AUTO) 2.62 MIL/uL (4.5-6.0); WHITE BLOOD COUNT (AUTO) 23.2 K/uL (4.3-11.0)
[2022-07-21 04:46] LABS: CALCIUM, SERUM 7.8 mg/dL (8.5-10.1); CREATININE 0.6 mg/dL (0.6-1.3); MAGNESIUM 1.5 mg/dL (1.8-2.4); PHOSPHORUS 3.3 mg/dL (2.5-4.9); POTASSIUM 4.4 mmol/L (3.5-5.1)
--- NOTE | 2022-07-21 06:03 | NUR ---
SPEEDER WORKER SATURATION MAINTAINING 84%; FIO2 INCREASED TO 80%
[2022-07-21] MEDS: LORAZEPAM INJ 2 MG/ML VIAL IV PRN ×2 (06:12→23:21)
--- NOTE | 2022-07-21 06:15 | NUR ---
HYGIENE ASSISTANT PT DESATURATING TO MID 80s; INCREASED RR; VERSED INCREASED MEDICATED WITH ATIVAN.
--- NOTE | 2022-07-21 06:32 | NUR ---
PATTERN CLEANER PT CONTINUES TO HAVE BLOODY DISCHARGE AND OUTPUT FROM GTUBE STOMA.
[2022-07-21] MEDS: IV D5W 1,000 ML IV SCH ×2 (07:59→17:57)
[2022-07-21] MEDS: FENTANYL CITRAT IV 2,500 MCG in IV NS 0.9% 200 ML IV PRN ×2 (08:25→16:17)
--- NOTE | 2022-07-21 08:36 | NUR ---
SS Note: SW received voicemail from the pt.s' sister, Serene Lynn [phone] providing pt.'s student services coordinator Denisse Marcela [phone]. JOSH called Denisse harley [phone] and call went to voicemail. SW left brief message and call back number. JOSH will follow up at a later.
[2022-07-21] MEDS: LEVETIRACETAM SOL (5 ML) 100 MG/ML UDC GT SCH ×2 (08:50→21:07)
[2022-07-21] MEDS: CARBIDOPA/LEVODOPA 25/100 MG 1 UDTAB GT SCH ×3 (08:51→16:13)
[2022-07-21] MEDS: GABAPENTIN 300 MG CAPSULE GT SCH ×4 (08:51→21:07)
[2022-07-21] MEDS: AMANTADINE HCL 100 MG CAPSULE GT SCH ×3 (08:51→16:13)
[2022-07-21] MEDS: VALPROIC ACID 250 MG/5 ML UDC GT SCH ×2 (08:51→21:07)
[2022-07-21] MEDS: DOXYCYCLINE 100 MG in IV D5W 100 ML IV SCH (08:52)
[2022-07-21] MEDS: MUPIROCIN OINT 2% 22 GM TUBE NS SCH (08:53)
[2022-07-21] MEDS: PROSOURCE / PROSTAT (PYXIS) 30 ML UDC GT SCH (08:53)
[2022-07-21] MEDS: DESMOPRESSIN 4 MCG/ML AMPUL SQ SCH ×2 (09:57→21:09)
[2022-07-21] MEDS ORDERED: MAGNESIUM OXIDE 400 MG TABLET PO ONE (10:00)
[2022-07-21] MEDS: Magnesium 1GM/D5W 100ML PREMIX 100 ML IV SCH ×3 (10:01→12:00)
[2022-07-21] MEDS: IV NS 0.9% 250 ML IV PRN (10:01)
[2022-07-21] MEDS: MIDAZOLAM HCL 100 MG in IV NS 0.9% 80 ML IV PRN (10:18)
[2022-07-21 10:42] LABS: BAND % (MANUAL) 5 % (0.0-5.0); EOSINOPHILS % (MANUAL) 3 % (0-4); LYMPHOCYTES % (MANUAL) 4 % (16-48); MONOCYTES % (MANUAL) 3 % (0-11.0); NEUTROPHILS % (MANUAL) 85 (42-76)
--- NOTE | 2022-07-21 11:22 | NUR ---
DR ALEX AT THE UNIT AND MADE AWARE REGARDING PATIENT CONTINUES TO HAVE SMALL BLOODY DISCHARGE AND YELLOWISH OUTPUT FROM GTUBE STOMA, EXAMINED/EVALUATED PT. GTSHEILA CLIFTON MD NO ORDER MADE AT THIS TIME.
--- NOTE | 2022-07-21 12:00 | NUR ---
PATIENT HAD A MODERATE AMOUNT OF SOFT YELLOW BM X 1 NOW. KEPT PT. CLEAN AND COMFORTABLE.
[2022-07-21] MEDS: JEVITY 1.2 CAL 1,000 ML BOTTLE GT PRN (14:44)
--- NOTE | 2022-07-21 20:00 | NUR ---
Received patient intubated on full vent support as prescribed and sedated on Fentanyl gtt max at 300 mcg and Versed at 4 mg/hr via PANCHO PICC LINE site intact.SR.BP unstable continue to monitor.Patient hypothermic Rectally 92.7.Bear hugger and blanket applied. GT feeding in progress with HOB elevated. No residual noted.FC to gravity.Incontinent of small soft brown stool.Kept clean and dry.Turned and repositioned.Continue monitoring.
[2022-07-21] MEDS: PRAMIPEXOLE DI-HCL 0.25 MG TABLET GT SCH (21:07)
[2022-07-21] MEDS ORDERED: PHENYLEPHRINE 10 MG/ML VIAL ONE (21:55)
--- NOTE | 2022-07-21 22:00 | NUR ---
2150 Patient with episode of desaturation down to 60%-77%.Secretion suctioned obtained small amount white secretion.RT Naun here increased FIO2 to 100%. O2 saturation went up to 99%.
[2022-07-22] VITALS (43 sets, daily range): BP systolic 60–113; BP diastolic 46–64
[2022-07-22] MEDS: FENTANYL CITRAT IV 2,500 MCG in IV NS 0.9% 200 ML IV PRN ×2 (01:25→11:09)
[2022-07-22] MEDS: METOCLOPRAMIDE HCL 10 MG/2 ML VIAL IV SCH ×3 (03:05→14:06)
[2022-07-22] MEDS: IV D5W 1,000 ML IV SCH (03:45)
[2022-07-22] MEDS: LORAZEPAM INJ 2 MG/ML VIAL IV PRN ×4 (05:25→14:03)
[2022-07-22 05:32] LABS: BASOPHILS % (AUTO) 0.1 % (0.0-2.0); EOSINOPHILS % (AUTO) 4.7 % (0.0-6.0); HEMATOCRIT 25 % (39-51); HEMOGLOBIN 7.6 g/dL (13.5-17.5); LYMPHOCYTES # (AUTO) 1.4 K/uL (0.8-4.8); LYMPHOCYTES % (AUTO) 8.3 % (20.0-44.0); MEAN CORPUSCULAR HGB CONC 31 g/dl (31.0-36.0); MEAN CORPUSCULAR VOLUME 98 fL (80-96); MONOCYTES # (AUTO) 0.7 K/uL (0.1-1.30); MONOCYTES % (AUTO) 3.9 % (2.0-12.0); RED BLOOD CELL COUNT(AUTO) 2.51 MIL/uL (4.5-6.0); WHITE BLOOD COUNT (AUTO) 16.8 K/uL (4.3-11.0)
--- NOTE | 2022-07-22 05:35 | NUR ---
Patient agitated and desat to 70's.Ativan administered as prn.RT here taking care of patient.AM care done.Complete lines changed.Turned and repositioned.All due meds given.No acute distress noted.
[2022-07-22 05:37] LABS: PLATELET COUNT (AUTO) 35 K/uL (150-450)
[2022-07-22 05:50] LABS: BILIRUBIN,TOTAL 0.7 mg/dL (0.2-1.0); CALCIUM, SERUM 7.6 mg/dL (8.5-10.1); CREATININE 0.5 mg/dL (0.6-1.3); MAGNESIUM 1.8 mg/dL (1.8-2.4); PHOSPHORUS 3.3 mg/dL (2.5-4.9); POTASSIUM 4.6 mmol/L (3.5-5.1); TOTAL PROTEIN, SERUM 4.4 g/dL (6.4-8.2)
[2022-07-22 05:54] LABS: ALBUMIN 0.9 g/dL (3.4-5.0)
[2022-07-22] MEDS: PHENYLEPHRINE 50 MG in IV NS 0.9% 245 ML IV PRN (06:09)
--- NOTE | 2022-07-22 06:30 | NUR ---
Patient hemodynamically unstable.NeoSynephrine gtt started and will titrate accordingly to keep SBP >90.[address]35 M.[facility] ,FOUNTAIN ROLLER ASSEMBLER notified no orders made.No signs of bleeding noted.
--- NOTE | 2022-07-22 07:30 | NUR ---
RN OPENING NOTE PT RECEIVED IN BED ON MECHANICAL VENT WITH ALL PRESCRIBED SETTINGS TOLERATING WELL O2 SAT 96%. PT IS SEDATED ON FENTANYL AND VERSED. GTUBE IS IN PLACE INFUSING WITH JEVITY @50ML/HR. FC IS IN PLACE DRAINING URINE TO GRAVITY. IV ACCESS R UA PICC LINE INFUSING WITH FENTANYL @300MCG/HR; VERSED @4MG HR; D5W @ 75ML/HR; ELIZA @ 0.6MCG/HR. BED IS LOCKED IN LOWEST POSITION AND ALL HOSPITAL SAFETY PROTOCOLS ARE IN PLACE. WILL CONTINUE TO MONITOR THIS SHIFT.
[2022-07-22] MEDS: AMANTADINE HCL 100 MG CAPSULE GT SCH ×2 (08:12→12:42)
[2022-07-22] MEDS: VALPROIC ACID 250 MG/5 ML UDC GT SCH (08:12)
[2022-07-22] MEDS: CARBIDOPA/LEVODOPA 25/100 MG 1 UDTAB GT SCH ×2 (08:12→12:42)
[2022-07-22] MEDS: LEVETIRACETAM SOL (5 ML) 100 MG/ML UDC GT SCH (08:12)
[2022-07-22] MEDS: GABAPENTIN 300 MG CAPSULE GT SCH ×2 (08:13→12:42)
[2022-07-22] MEDS: PROSOURCE / PROSTAT (PYXIS) 30 ML UDC GT SCH (08:50)
[2022-07-22] MEDS: DESMOPRESSIN 4 MCG/ML AMPUL SQ SCH (09:00)
[2022-07-22 09:05] LABS: ABG BASE EXCESS -0.7 mmol/L; ABG OXYGEN SATURATION 86.3 % (92.0-98.5); ABG PH 7.367 (7.350-7.450); ABG PO2 52.2 mmHg (75.0-100.0); AaDO2 616.8 mmHg; COHb 0.7 % (0.5-1.5); MetHb 0.3 % (0.0-1.5); O2Hb 85.4 % (94.0-97.0); PEEP,BG 12 cm H2O; SITE, ABG Right Radial; VT, ABG 525 mL
[2022-07-22] MEDS: MIDAZOLAM HCL 100 MG in IV NS 0.9% 80 ML IV PRN (11:08)
[2022-07-22 11:19] LABS: BAND % (MANUAL) 1 % (0.0-5.0); EOSINOPHILS % (MANUAL) 9 % (0-4); LYMPHOCYTES % (MANUAL) 3 % (16-48); MONOCYTES % (MANUAL) 1 % (0-11.0); NEUTROPHILS % (MANUAL) 86 (42-76)
[2022-07-22] MEDS: IV NS 0.9% 250 ML IV PRN (11:48)
[2022-07-22] MEDS ORDERED: MEROPENEM 500 MG in IV NS 0.9% 50 ML IV SCH (13:00)
[2022-07-22] MEDS ORDERED: MEROPENEM 1 G in IV NS 0.9% 100 ML IV SCH (13:00)
--- NOTE | 2022-07-22 14:30 | NUR ---
RN NOTE: CODE STATUS FAMILY HAS REQUESTED PT BE PLACED ON COMFORT MEASURES ONLY. MD IS AWARE AT THIS TIME OF FAMILY REQUEST.
--- NOTE | 2022-07-22 15:00 | NUR ---
RN NOTE: EXTUBATION PT EXTUBATED AT THIS TIME AND IS ON COMFORT MEASURES ONLY.
--- NOTE | 2022-07-22 15:30 | NUR ---
RN NOTE: PT PT WHILE ON COMFORT CARE. LABORATORY IMMUNOLOGIST, ADMITTING, AND DR ALL NOTIFIED OF PTS . FAMILY IS AT BEDSIDE AT THIS TIME.
--- NOTE | 2022-07-22 15:55 | NUR ---
RN NOTE: [facility] THIS RN CALLED TO NOTIFY [facility] OF PTS . SPOKE TO BALWINDER AND WAS PROVIDED .
--- NOTE | 2022-07-22 15:57 | NUR ---
RN NOTE: SENIOR DATA MODELER FAMILY ASKED THIS NURSE TO CONTACT THEIR SENIOR DATA MODELER TO LET HER KNOW TIME OF OF PATIENT. MADE CONTACT WITH SENIOR DATA MODELER VIA TELEPHONE. VIOLET: [phone].
--- NOTE | 2022-07-22 17:45 | NUR ---
RN NOTE: SORAYA PT PICKED UP BY SECURITY AT THIS TIME AND TAKEN TO [facility]. ALL TAGS APPLIED TO PT AND ALL POST MORTEM CARE COMPLETED. NO PT BELONGINGS .
== END 2022-07-22 18:08 | DRG 870 ==
LOC: ER 15:52 → TELE1 20:52 → ICU 07-09 00:31
PROVIDERS: ADMIT Nurse Practitioner Acute Care
PROC: 5A1955Z Respiratory Ventilation, Greater than 96 Consecutive Hours (ICD-10-PCS; principal; 2022-07-08)
PROC: 0BH18EZ Insertion of Endotracheal Airway into Trachea, Via Natural or Artificial Opening Endoscopic (ICD-10-PCS; 2022-07-08)
PROC: 05H933Z Insertion of Infusion Device into Right Brachial Vein, Percutaneous Approach (ICD-10-PCS; 2022-07-09)
DX: A41.9 Sepsis, unspecified organism (principal); G93.41 Metabolic encephalopathy; N17.0 Acute kidney failure with tubular necrosis; R65.21 Severe sepsis with septic shock; J15.6 Pneumonia due to other Gram-negative bacteria; R53.2 Functional quadriplegia; E43 Unspecified severe protein-calorie malnutrition; I50.33 Acute on chronic diastolic (congestive) heart failure; J96.22 Acute and chronic respiratory failure with hypercapnia; J96.21 Acute and chronic respiratory failure with hypoxia; D65 Disseminated intravascular coagulation [defibrination syndrome]; G93.1 Anoxic brain damage, not elsewhere classified; K92.2 Gastrointestinal hemorrhage, unspecified; E23.2 Diabetes insipidus; E78.5 Hyperlipidemia, unspecified; F41.9 Anxiety disorder, unspecified; E88.09 Other disorders of plasma-protein metabolism, not elsewhere classified; Z87.820 Personal history of traumatic brain injury; K21.9 Gastro-esophageal reflux disease without esophagitis; Z20.822 Contact with and (suspected) exposure to COVID-19; G40.909 Epilepsy, unspecified, not intractable, without status epilepticus; Z79.51 Long term (current) use of inhaled steroids; Z79.899 Other long term (current) drug therapy; I11.0 Hypertensive heart disease with heart failure; E86.1 Hypovolemia; R13.10 Dysphagia, unspecified; Z93.1 Gastrostomy status; D63.8 Anemia in other chronic diseases classified elsewhere; D50.9 Iron deficiency anemia, unspecified; G20 Parkinson's disease; M24.571 Contracture, right ankle; M24.572 Contracture, left ankle; Y95 Nosocomial condition; Z93.0 Tracheostomy status; L89.890 Pressure ulcer of other site, unstageable; L89.516 Pressure-induced deep tissue damage of right ankle
CPT/HCPCS: 31720; 36410; 36415; 36600; 70450-TC; 71045-TC; 74018; 76770-TC; 76870-TC; 80048-TC; 80053-TC; 80076-TC; 80202-TC; 81001; 82247-TC; 82248-TC; 82570-TC; 82803-TC; 82962-TC; 83605-TC; 83735-TC; 83880; 84100-TC; 84300-TC; 84478-TC; 84484-TC; 85025-TC; 85730-TC; 86850-TC; 87040-TC; 87081-TC; 87086-TC; 93307-TC; 94002-TC; 94003-TC; 94760-TC; 94799-TC; A6253; A6403; C9803; G0378; J0171; J0330; J0692; J1610; J1720; J1953; J2060; J2185; J2250; J2370; J2543; J2597; J2765; J3010; J3370; J3475; J3490; J7030; J7040; J7042; J7050; J7060; J7070; J7120; P9016; U0003